=== PATIENT | female | born 1955 | race Caucasian/White ===

== ENCOUNTER 2017-01-14 17:26 | Observation (INO) | payer OTHER ==
--- NOTE | 2017-01-14 17:43 | EDPHY ---
H & P Time Seen by Provider: 01/14/17 17:28 HPI/ROS: CHIEF COMPLAINT: Chest pain HISTORY OF PRESENT ILLNESS: This patient is an anticoagulated 61 y/o female s/p STEMI with two stent placements 12/02/16 presenting with chest pain onset five days ago. Her symptoms over the last week are different from and not nearly so severe as her initial STEMI presentation. She has a sensation of feeling the stents which she describes as a left-sided pinching sensation in her left chest. This is constant. Her discomfort resolves after she sleeps, and gets progressively worse throughout each day. Activity makes it worse, and she feels improved when she lies down and tries to relax. Today, she felt a head marlow while sitting at her computer and felt very close to passing out. This has since resolved. She denies headache, fever, shortness of breath, nausea, or other associated symptoms. STEMI complicated by coronary artery perforation and hemorrhage with subsequent five-day ICU admission. She returned to work yesterday after a six week recovery including cardiac rehabilitation. REVIEW OF SYSTEMS: A 10 point review of systems was performed and is negative with the exception of the elements mentioned in the history of present illness. Past Medical/Surgical History: 1. Hypothyroid 2. STEMI s/p stent placement x2 12/02/16 Social History: Lives in [place]. Friends at bedside. Works at [employer]. Smoking Status: Never smoked Physical Exam: General Appearance: Alert, no distress Eyes: Pupils equal and round, no conjunctival pallor or injection ENT, Mouth: Mucous membranes moist Neck: Normal inspection Respiratory: Lungs are clear to auscultation Cardiovascular: Regular rate and rhythm Gastrointestinal: Abdomen is soft and non- tender Neurological: A&O, nonfocal, normal gait Skin: Warm and dry, no rash Extremities: Nontender, no pedal edema Psychiatric: Mood and affect normal Constitutional: Initial Vital Signs Temperature (C) 37.2 C 01/14/17 17:29 Heart Rate 81 01/14/17 17:29 Respiratory Rate 16 01/14/17 17:29 Blood Pressure 143/65 H 01/14/17 17:29 O2 Sat (%) 99 01/14/17 17:29 O2 Delivery Mode Room Air Allergies/Adverse Reactions: No Known Allergies Allergy (Unverified 01/14/17 17:35) Home Medications: Medication Instructions Recorded Aspirin EC [Aspirin EC 81 mg (*)] 81 mg PO DAILY 01/14/17 Atorvastatin Calcium 80 mg PO DAILY 01/14/17 Levothyroxine [Synthroid 50 mcg 50 mcg PO DAILY06 01/14/17 (*)] Lisinopril [Lisinopril] 2.5 mg PO DAILY 01/14/17 Metoprolol Succinate Xr [Toprol Xl 12.5 mg PO DAILY 01/14/17 25 mg (*)] Tears/Dextran 70/Hypromellose 1 drop EACHEYE PRN PRN 01/14/17 [Natural Balance Tears (*)] Ticagrelor [Brilinta] 90 mg PO BID 01/14/17 Medical Decision Making - Diagnostics EKG Interpretation: EKG interpreted by me reveals normal sinus rhythm, rate 76, no ST/T changes. Interpretation: normal EKG. Imaging Results: Imaging Impressions Chest X-Ray 01/14/17 18:04 Impression: No evidence of acute cardiopulmonary abnormality. Imaging: I viewed and interpreted images myself ED Course/Re-evaluation: 61 y/o female s/p STEMI and stent placement 12/02/16 presents with chest pain. Her presentation with prior STEMI was like "an elephant on her chest" whereas today it is characterized by a sharp, left-sided pinching sensation. Exam unremarkable. EKG shows sinus rhythm and no evidence of ischemia or dysrhythmia. Doubt acute coronary syndrome/stent blockage. Plan for chest x- ray, EKG, labs including CBC, BMP, troponin, D-dimer. D-dimer and troponin negative. Chest x-ray negative for acute processes. No evidence pneumonia, pneumothorax. I query whether she has a pericardial effusion given her pleuritic chest pain. There is no emergent indication for echocardiogram this evening, but will planned for echocardiogram the morning. D -dimer is negative and I do not suspect pulmonary embolism in this patient. She is currently anticoagulated and has no risk factors for pulmonary embolism. I feel that I can safely exclude this diagnosis. 18:[address] Webster, hospitalist. She accepts admission to PCU for chest pain. 19:[address] Patterson, levi maker. He will consult the patient in the morning. Differential Diagnosis: Differential diagnosis includes though it is not limited to pneumonia, pneumothorax, pulmonary embolism, aortic dissection, pericarditis, acute coronary syndrome. - Data Points Laboratory Results: Laboratory Results 01/14/17 18:00 01/14/17 18:00 01/14/17 01/14/17 01/14/17 18:00 18:00 18:00 WBC 7.04 10^3/uL 10^3/uL (3.80-9.50) RBC 4.06 10^6/uL L 10^6/uL (4.18-5.33) Hgb 12.4 g/dL L g/dL (12.6-16.3) Hct 37.5 % L % (38.0-47.0) MCV 92.4 fL fL (81.5-99.8) MCH 30.5 pg pg (27.9-34.1) MCHC 33.1 g/dL g/dL (32.4-36.7) RDW 12.8 % % (11.5-15.2) Plt Count 333 10^3/uL 10^3/uL (150-400) MPV 8.9 fL fL (8.7-11.7) Neut % (Auto) 54.5 % % (39.3-74.2) Lymph % (Auto) 30.0 % % (15.0-45.0) [place] % (Auto) 10.1 % % (4.5-13.0) Eos % (Auto) 3.6 % % (0.6-7.6) Baso % (Auto) 1.7 % % (0.3-1.7) Nucleat RBC Rel Count 0.0 % % (0.0-0.2) Absolute Neuts (auto) 3.84 10^3/uL 10^3/uL (1.70-6.50) Absolute Lymphs (auto) 2.11 10^3/uL 10^3/uL (1.00-3.00) Absolute Monos (auto) 0.71 10^3/uL 10^3/uL (0.30-0.80) Absolute Eos (auto) 0.25 10^3/uL 10^3/uL (0.03-0.40) Absolute Basos (auto) 0.12 10^3/uL H 10^3/uL (0.02-0.10) Absolute Nucleated RBC 0.00 10^3/uL 10^3/uL (0-0.01) Immature Gran % 0.1 % % (0.0-1.1) Immature Gran # 0.01 10^3/uL 10^3/uL (0.00-0.10) D-Dimer 0.38 ug/mLFEU ug/mLFEU (0.00-0.50) Sodium 139 mEq/L mEq/L (134-144) Potassium 3.5 mEq/L mEq/L (3.5-5.2) Chloride 105 mEq/L mEq/L (97-110) Carbon Dioxide 24 mEq/l mEq/l (22-31) Anion Gap 10 mEq/L mEq/L (8-16) BUN 12 mg/dL mg/dL (7-23) Creatinine 0.8 mg/dL mg/dL (0.6-1.0) Estimated GFR > 60 Glucose 99 mg/dL mg/dL (70-100) Calcium 9.3 mg/dL mg/dL (8.5-10.4) Troponin I < 0.012 ng/mL ng/mL (0.000-0.034) NT-Pro-B Natriuret Pep 774 pg/mL H pg/mL (0-125) Departure - Departure Disposition: [facility] Inpatient Acute Clinical Impression: Chest pain Qualifiers: Chest pain type: other chest pain Qualified Code(s): R07.89 - Other chest pain Condition: Fair Report Scribed for: Gwendolyn Lau Report Scribed by: Arlene Vega Date of Report: 01/14/17 Time of Report: 17:41 Physician Review and Approval Statement: 01/14/17 17:41 Portions of this note were transcribed by a medical staff physician. I personally performed a history, physical exam, medical decision making, and confirmed accuracy of information the transcribed note.
--- NOTE | 2017-01-14 17:45 | CPEKG ---
Heart Rate: 76 RR Interval: 789 P-R Interval: 152 QRSD Interval: 72 QT Interval: 396 QTC Interval: 446 P Montgomery: 55 QRS Montgomery: 20 T Wave Montgomery: 47 EKG Severity - NORMAL ECG - EKG Impression: SINUS RHYTHM Electronically Signed By: Gwendolyn Lau 14-Jan-2017 20:09:43
[2017-01-14 18:09] LABS: PLATELET COUNT 333 10^3/uL (150-400)
[2017-01-14] MEDS ORDERED: ACETAMINOPHEN 325 MG TAB PO PRN (19:11)
[2017-01-14] MEDS ORDERED: ONDANSETRON DISINTEGRATING 4 MG TAB PO PRN (19:11)
[2017-01-14] MEDS ORDERED: ONDANSETRON 4 MG/2 ML VIAL IVP PRN (19:11)
[2017-01-14] MEDS ORDERED: TEARS/DEXTRAN 70/HYPROMELLOSE 15 ML OPHT.BTL EACHEYE PRN (20:43)
[2017-01-14] MEDS: ASPIRIN EC 81 MG TAB PO SCH (21:28)
[2017-01-14] MEDS: TICAGRELOR 90 MG TAB PO SCH (21:28)
--- NOTE | 2017-01-14 21:46 | GHP ---
[f rep st] HISTORY AND PHYSICAL DATE OF ADMISSION: 01/14/2017 CHIEF COMPLAINT: Chest pain. HISTORY OF PRESENT ILLNESS: A 61-year-old female with history of recent STEMI December 02, 2016, presenting with chest pain that began 5 days ago. The patient initially presented to [facility] and had 2 LAD stents placed. Was complicated by a coronary artery perforation hemorrhage with a subsequent 5 day ICU admission. She returned to work yesterday after 6 week recovery including cardiac rehab. Since discharge, she reports shortness of breath with activity like stairs. She comes in today with a left upper chest and neck pinching sensation. It is minimal in the morning and increases throughout the day up to a 10/10 at night. It has been constant, but has progressed over the past 5 days, thus she came into the ER. No associated radiation to the arm or jaw. No diaphoresis or nausea. Reports PND. Has had swollen feet, but she says this is chronic. Denies any recent trauma to the chest. Has been compliant with all of her medications. Reports sensation of presyncope today at work. Was sitting at desk and "saw stars", but did not have LOC. Was having left-neck pain, but no CP, SOB, N/V, diaphoresis with this episode. REVIEW OF SYSTEMS: I completed a 10-point review of systems, negative except as noted in HPI. PAST MEDICAL HISTORY: 1. STEMI status post 2 stents to LAD 12/02/2016. 2. Hypothyroidism. 3. Footdrop. 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 SOCIAL: Lives in [place]. 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 No cigarettes or drugs. FAMILY HISTORY: Dad [place]. A sister with [place]. Mother, paternal uncles with [place]. Grandfather with [place]. HOME MEDICATIONS: See medication reconciliation. ALLERGIES: Codeine, mild. PHYSICAL EXAM: VITAL SIGNS: Blood pressure is 142/75, temperature 37.2, heart rate 70s, respirations 16, 97% on room air. GENERAL: Well-appearing female, sitting up in bed, no acute distress. HEENT: PERRLA. EOMI. Oropharynx clear. CV: Regular rate and rhythm. No murmurs, gallops, rubs. No JVD. Trace pedal edema. LUNGS: Clear to auscultation. No crackles. ABDOMEN: Soft , nontender, nondistended. Positive bowel sounds. : No suprapubic tenderness. MUSCULOSKELETAL: Reproducible pain on left neck. Significant pain with palpation over left upper chest as well. Contracture of right foot with bruising over great toe. NEURO: 2 through 12 intact. PSYCH: Alert and oriented x3. Very pleasant. LABS: WBC 7, hemoglobin 12, hematocrit 37, platelets 333. D-dimer is 0.38. Sodium 139, potassium 3.5, chloride 105, carbon dioxide 24, BUN 12, creatinine 0.8, glucose 99. Troponin less than 0.012. BNP is 774. Chest x-ray personally reviewed by me. No evidence of effusion or edema. EKG personally reviewed by me. Normal sinus rhythm. Minimal ST depression in V2, V3. No old to compare. ASSESSMENT AND PLAN: 1. Neck/chest pain: Differential includes: musculoskeletal, in-stent thrombosis, acute coronary syndrome, PE. Initial troponin and EKG negative for ischemia. Her pain is reproducible on exam. Given recent stenting, we will monitor overnight PCU on telemetry. Repeat troponin, EKG. Dr. Lau did speak with Dr. Concepcion of Cardiology to weigh in in the morning. P.r.n. morphine, sublingual nitroglycerin. Obtain records from [facility]. 2. Coronary artery disease: 2 recent stents. Continue statin, beta sonia, Brilinta and aspirin. Again, Cardiology to evaluate. 3. Anxiety: This was exacerbated by trauma associated with recent stenting. Per daughter, the patient was not fully sedated and pulled the stent out. We will provide p.r.n. Ativan. 4. Hypothyroidism. Continue home medications. 5. Shortness of breath: BNP is mildly elevated and she reports PND. Check an echocardiogram in morning. Not hypoxic here. DIET: Cardiac n.p.o. after midnight in case of intervention. DISPOSITION: Patient warrants observation admission given acute chest pain warranting serial enzymes, telemetry and cardiac evaluation. /[id number]/MODL MTDD
--- NOTE | 2017-01-14 21:46 | GHP ---
[f rep st] HISTORY AND PHYSICAL DATE OF ADMISSION: 01/14/2017 CHIEF COMPLAINT: Chest pain. HISTORY OF PRESENT ILLNESS: A 61-year-old female with history of recent STEMI December 02, 2016, presenting with chest pain that began 5 days ago. The patient initially presented to [facility] and had 2 LAD stents placed. Was complicated by a coronary artery perforation hemorrhage with a subsequent 5 day ICU admission. She returned to work yesterday after 6 week recovery including cardiac rehab. Since discharge, she reports shortness of breath with activity like stairs. She comes in today with a left upper chest and neck pinching sensation. It is minimal in the morning and increases throughout the day up to a 10/10 at night. It has been constant, but has progressed over the past 5 days, thus she came into the ER. No associated radiation to the arm or jaw. No diaphoresis or nausea. Reports PND. Has had swollen feet, but she says this is chronic. Denies any recent trauma to the chest. Has been compliant with all of her medications. Reports sensation of presyncope today at work. Was sitting at desk and "saw stars", but did not have LOC. Was having left-neck pain, but no CP, SOB, N/V, diaphoresis with this episode. REVIEW OF SYSTEMS: I completed a 10-point review of systems, negative except as noted in HPI. PAST MEDICAL HISTORY: 1. STEMI status post 2 stents to LAD 12/02/2016. 2. Hypothyroidism. 3. Footdrop. 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 SOCIAL: Lives in [place]. 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 No cigarettes or drugs. FAMILY HISTORY: Dad [place]. A sister with [place]. Mother, paternal uncles with [place]. Grandfather with [place]. HOME MEDICATIONS: See medication reconciliation. ALLERGIES: Codeine, mild. PHYSICAL EXAM: VITAL SIGNS: Blood pressure is 142/75, temperature 37.2, heart rate 70s, respirations 16, 97% on room air. GENERAL: Well-appearing female, sitting up in bed, no acute distress. HEENT: PERRLA. EOMI. Oropharynx clear. CV: Regular rate and rhythm. No murmurs, gallops, rubs. No JVD. Trace pedal edema. LUNGS: Clear to auscultation. No crackles. ABDOMEN: Soft , nontender, nondistended. Positive bowel sounds. : No suprapubic tenderness. MUSCULOSKELETAL: Reproducible pain on left neck. Significant pain with palpation over left upper chest as well. Contracture of right foot with bruising over great toe. NEURO: 2 through 12 intact. PSYCH: Alert and oriented x3. Very pleasant. LABS: WBC 7, hemoglobin 12, hematocrit 37, platelets 333. D-dimer is 0.38. Sodium 139, potassium 3.5, chloride 105, carbon dioxide 24, BUN 12, creatinine 0.8, glucose 99. Troponin less than 0.012. BNP is 774. Chest x-ray personally reviewed by me. No evidence of effusion or edema. EKG personally reviewed by me. Normal sinus rhythm. Minimal ST depression in V2, V3. No old to compare. ASSESSMENT AND PLAN: 1. Neck/chest pain: Differential includes: musculoskeletal, in-stent thrombosis, acute coronary syndrome, PE. Initial troponin and EKG negative for ischemia. Her pain is reproducible on exam. Given recent stenting, we will monitor overnight PCU on telemetry. Repeat troponin, EKG. Dr. Lau did speak with Dr. Concepcion of Cardiology to weigh in in the morning. P.r.n. morphine, sublingual nitroglycerin. Obtain records from [facility]. 2. Coronary artery disease: 2 recent stents. Continue statin, beta sonia, Brilinta and aspirin. Again, Cardiology to evaluate. 3. Anxiety: This was exacerbated by trauma associated with recent stenting. Per daughter, the patient was not fully sedated and pulled the stent out. We will provide p.r.n. Ativan. 4. Hypothyroidism. Continue home medications. 5. Shortness of breath: BNP is mildly elevated and she reports PND. Check an echocardiogram in morning. Not hypoxic here. DIET: Cardiac n.p.o. after midnight in case of intervention. DISPOSITION: Patient warrants observation admission given acute chest pain warranting serial enzymes, telemetry and cardiac evaluation. /[id number]/MODL MTDD
--- NOTE | 2017-01-14 21:46 | GHP ---
[f rep st] HISTORY AND PHYSICAL DATE OF ADMISSION: 01/14/2017 CHIEF COMPLAINT: Chest pain. HISTORY OF PRESENT ILLNESS: A 61-year-old female with history of recent STEMI December 02, 2016, presenting with chest pain that began 5 days ago. The patient initially presented to [facility] and had 2 LAD stents placed. Was complicated by a coronary artery perforation hemorrhage with a subsequent 5 day ICU admission. She returned to work yesterday after 6 week recovery including cardiac rehab. Since discharge, she reports shortness of breath with activity like stairs. She comes in today with a left upper chest and neck pinching sensation. It is minimal in the morning and increases throughout the day up to a 10/10 at night. It has been constant, but has progressed over the past 5 days, thus she came into the ER. No associated radiation to the arm or jaw. No diaphoresis or nausea. Reports PND. Has had swollen feet, but she says this is chronic. Denies any recent trauma to the chest. Has been compliant with all of her medications. Reports sensation of presyncope today at work. Was sitting at desk and "saw stars", but did not have LOC. Was having left-neck pain, but no CP, SOB, N/V, diaphoresis with this episode. REVIEW OF SYSTEMS: I completed a 10-point review of systems, negative except as noted in HPI. PAST MEDICAL HISTORY: 1. STEMI status post 2 stents to LAD 12/02/2016. 2. Hypothyroidism. 3. Footdrop. 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 SOCIAL: Lives in [place]. 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 No cigarettes or drugs. FAMILY HISTORY: Dad [place]. A sister with [place]. Mother, paternal uncles with [place]. Grandfather with [place]. HOME MEDICATIONS: See medication reconciliation. ALLERGIES: Codeine, mild. PHYSICAL EXAM: VITAL SIGNS: Blood pressure is 142/75, temperature 37.2, heart rate 70s, respirations 16, 97% on room air. GENERAL: Well-appearing female, sitting up in bed, no acute distress. HEENT: PERRLA. EOMI. Oropharynx clear. CV: Regular rate and rhythm. No murmurs, gallops, rubs. No JVD. Trace pedal edema. LUNGS: Clear to auscultation. No crackles. ABDOMEN: Soft , nontender, nondistended. Positive bowel sounds. : No suprapubic tenderness. MUSCULOSKELETAL: Reproducible pain on left neck. Significant pain with palpation over left upper chest as well. Contracture of right foot with bruising over great toe. NEURO: 2 through 12 intact. PSYCH: Alert and oriented x3. Very pleasant. LABS: WBC 7, hemoglobin 12, hematocrit 37, platelets 333. D-dimer is 0.38. Sodium 139, potassium 3.5, chloride 105, carbon dioxide 24, BUN 12, creatinine 0.8, glucose 99. Troponin less than 0.012. BNP is 774. Chest x-ray personally reviewed by me. No evidence of effusion or edema. EKG personally reviewed by me. Normal sinus rhythm. Minimal ST depression in V2, V3. No old to compare. ASSESSMENT AND PLAN: 1. Neck/chest pain: Differential includes: musculoskeletal, in-stent thrombosis, acute coronary syndrome, PE. Initial troponin and EKG negative for ischemia. Her pain is reproducible on exam. Given recent stenting, we will monitor overnight PCU on telemetry. Repeat troponin, EKG. Dr. Lau did speak with Dr. Concepcion of Cardiology to weigh in in the morning. P.r.n. morphine, sublingual nitroglycerin. Obtain records from [facility]. 2. Coronary artery disease: 2 recent stents. Continue statin, beta sonia, Brilinta and aspirin. Again, Cardiology to evaluate. 3. Anxiety: This was exacerbated by trauma associated with recent stenting. Per daughter, the patient was not fully sedated and pulled the stent out. We will provide p.r.n. Ativan. 4. Hypothyroidism. Continue home medications. 5. Shortness of breath: BNP is mildly elevated and she reports PND. Check an echocardiogram in morning. Not hypoxic here. DIET: Cardiac n.p.o. after midnight in case of intervention. DISPOSITION: Patient warrants observation admission given acute chest pain warranting serial enzymes, telemetry and cardiac evaluation. /[id number]/MODL MTDD
[2017-01-14] MEDS: NITROGLYCERIN 0.4 MG BTL SL PRN ×2 (22:12→22:44)
[2017-01-14] MEDS: LORazepam 0.5 MG TAB PO PRN (22:17)
[2017-01-14] MEDS ORDERED: MAG HYDROX/AL HYDROX/SIMETH 30 ML UDCUP PO PRN (23:00)
[2017-01-15] MEDS ORDERED: MAG HYDROX/AL HYDROX/SIMETH 30 ML UDCUP ONE (00:01)
[2017-01-15] MEDS ORDERED: LEVOTHYROXINE 50 MCG TAB PO SCH (06:00)
[2017-01-15] MEDS ORDERED: METOPROLOL SUCCINATE XR 25 MG TAB PO SCH (09:00)
[2017-01-15] MEDS ORDERED: ATORVASTATIN CALCIUM 40 MG TAB PO SCH (09:00)
[2017-01-15] MEDS ORDERED: LISINOPRIL 2.5 MG TAB PO SCH (09:00)
[2017-01-15] MEDS: ASPIRIN EC 81 MG TAB PO SCH (09:32)
[2017-01-15] MEDS: TICAGRELOR 90 MG TAB PO SCH (09:32)
--- NOTE | 2017-01-15 09:35 | ASMTCMCOM ---
CM Note CM Note Notes: 01/15/2017 Case Management Note Met w/pt. No case management d/c needs identified at this time. Case Management d/c poc: Home independent with friend and family support when medically stable. Date Signed: 01/15/2017 09:34 AM Electronically Signed By:Kimberly Pepper RN
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
[2017-01-15] MEDS ORDERED: traMADol 50 MG TAB PO PRN (11:11)
[2017-01-15] MEDS ORDERED: LIDOCAINE 5% 1 EA PATCH TD SCH (11:15)
--- NOTE | 2017-01-15 11:22 | ECHO ---
[email or web address] [address] [address] Main: [phone] Fax: Transthoracic Echocardiogram Name: DEXTER GALICIA MR#: [id number] Study Date: 01/15/2017 Study Time: 08:20 AM Date of : 1955 Age: 61 year(s) Height: 162.6 cm (64 in.) Weight: 58.97 kg (130 lb.) BSA: 1.63 m2 Gender: Female Examination: Echo Indication: Recent stents, Shortness of breath Image Quality: Contrast: Requested by: Jeny Webster BP: 103 mmHg/55 mmHg Heart Rate: Rhythm: Indication: Recent stents, Shortness of breath Procedure Staff Cattle Sprayer: Brigid Santos Reading Physician: Dagoberto Muñiz Requesting Provider: Conclusions: Technically difficult study with poor acoustic windows. The patient was in sinus rhythm at the time of the study. Normal left ventricular systolic function with an ejection fraction of 60 65%. There appears to be inferoseptal severe hypokinesis to akinesis. Detailed wall motion analysis is difficult due to the acoustic windows. Normal right-sided Chamber dimensions. Mild left atrial enlargement. Trivial aortic regurgitation. Mild mitral and trace tricuspid regurgitation. No pericardial effusion. Measurements: Chambers Valvular Assessment AV/MV Valvular Assessment TV/PV Normal Normal Normal Name Value Range Name Value Range Name Value Range Ao Ann Marie (MM): 2.6 cm (2.2 cm-3.7 AV meanP mmHg ( - ) cm) MV E Vmax: 0.58 m/s ( - ) IVSd (2D): 0.6 cm (0.6 cm-1.1 MV A Vmax: 0.63 m/s ( - ) cm) MV E/A: 0.92 ( - ) LVDd (2D): 5.0 cm (3.9 cm-5.3 cm) LVPWd (2D): 0.7 cm ( - ) LVEF (MOD4): 64 % (>=55 %) EF Range: 60-65 % Continued Measurements: Chambers Valvular Assessment AV/MV Name Value Name Value LADs: 3.1 cm MV E/E' Septal: 8.00 LADs Lon.6 cm MV E/E' Lateral: 5.70 LA Area: 17.4 cm2 Patient: DEXTER GALICIA Study Date: 01/15/2017 Page 1 of 2 08:20 AM Findings: Left Ventricle: Normal size left ventricle. No LV hypertrophy. The ejection fraction is estimated to be 60-65 %. LV mid inferoseptal wall is akinetic.. Right Ventricle: Normal size right ventricle. Normal RV function. Left Atrium: The left atrium is mildly dilated. Right Atrium: The right atrium is normal in size. Mitral Valve: The mitral valve is normal in appearance and function. Mild mitral valve regurgitation is present. Aortic Valve: The aortic valve is normal in appearance and function. Trivial aortic valve regurgitation. Tricuspid Valve: The tricuspid valve is normal in appearance and function. Trivial tricuspid valve regurgitation. Pulmonic Valve: The pulmonic valve is normal in appearance and function. Aorta: The aorta is normal. Pericardium: No pericardial effusion. (No Signature Object) Patient: DEXTER GALICIA Study Date: 01/15/2017 Page 2 of 2 08:20 AM [id number]
--- NOTE | 2017-01-15 11:22 | ECHO ---
[email or web address] [address] [address] Main: [phone] Fax: Transthoracic Echocardiogram Name: DEXTER GALICIA MR#: [id number] Study Date: 01/15/2017 Study Time: 08:20 AM Date of : 1955 Age: 61 year(s) Height: 162.6 cm (64 in.) Weight: 58.97 kg (130 lb.) BSA: 1.63 m2 Gender: Female Examination: Echo Indication: Recent stents, Shortness of breath Image Quality: Contrast: Requested by: Jeny Webster BP: 103 mmHg/55 mmHg Heart Rate: Rhythm: Indication: Recent stents, Shortness of breath Procedure Staff [place]ater: Brigid Santos Reading Physician: Dagoberto Muñiz Requesting Provider: Conclusions: Technically difficult study with poor acoustic windows. The patient was in sinus rhythm at the time of the study. Normal left ventricular systolic function with an ejection fraction of 60 65%. There appears to be inferoseptal severe hypokinesis to akinesis. Detailed wall motion analysis is difficult due to the acoustic windows. Normal right-sided Chamber dimensions. Mild left atrial enlargement. Trivial aortic regurgitation. Mild mitral and trace tricuspid regurgitation. No pericardial effusion. Measurements: Chambers Valvular Assessment AV/MV Valvular Assessment TV/PV Normal Normal Normal Name Value Range Name Value Range Name Value Range Ao Ann Marie (MM): 2.6 cm (2.2 cm-3.7 AV meanP mmHg ( - ) cm) MV E Vmax: 0.58 m/s ( - ) IVSd (2D): 0.6 cm (0.6 cm-1.1 MV A Vmax: 0.63 m/s ( - ) cm) MV E/A: 0.92 ( - ) LVDd (2D): 5.0 cm (3.9 cm-5.3 cm) LVPWd (2D): 0.7 cm ( - ) LVEF (MOD4): 64 % (>=55 %) EF Range: 60-65 % Continued Measurements: Chambers Valvular Assessment AV/MV Name Value Name Value LADs: 3.1 cm MV E/E' Septal: 8.00 LADs Lon.6 cm MV E/E' Lateral: 5.70 LA Area: 17.4 cm2 Patient: DEXTER GALICIA Study Date: 01/15/2017 Page 1 of 2 08:20 AM Findings: Left Ventricle: Normal size left ventricle. No LV hypertrophy. The ejection fraction is estimated to be 60-65 %. LV mid inferoseptal wall is akinetic.. Right Ventricle: Normal size right ventricle. Normal RV function. Left Atrium: The left atrium is mildly dilated. Right Atrium: The right atrium is normal in size. Mitral Valve: The mitral valve is normal in appearance and function. Mild mitral valve regurgitation is present. Aortic Valve: The aortic valve is normal in appearance and function. Trivial aortic valve regurgitation. Tricuspid Valve: The tricuspid valve is normal in appearance and function. Trivial tricuspid valve regurgitation. Pulmonic Valve: The pulmonic valve is normal in appearance and function. Aorta: The aorta is normal. Pericardium: No pericardial effusion. (No Signature Object) Patient: DEXTER GALICIA Study Date: 01/15/2017 Page 2 of 2 08:20 AM [id number]
--- NOTE | 2017-01-15 11:22 | ECHO ---
[email or web address] [address] [address] Main: [phone] Fax: Transthoracic Echocardiogram Name: DEXTER GALICIA MR#: [id number] Study Date: 01/15/2017 Study Time: 08:20 AM Date of : 1955 Age: 61 year(s) Height: 162.6 cm (64 in.) Weight: 58.97 kg (130 lb.) BSA: 1.63 m2 Gender: Female Examination: Echo Indication: Recent stents, Shortness of breath Image Quality: Contrast: Requested by: Jeny Webster BP: 103 mmHg/55 mmHg Heart Rate: Rhythm: Indication: Recent stents, Shortness of breath Procedure Staff Mobile Paramedical Examiner: Brigid Santos Reading Physician: Dagoberto Muñiz Requesting Provider: Conclusions: Technically difficult study with poor acoustic windows. The patient was in sinus rhythm at the time of the study. Normal left ventricular systolic function with an ejection fraction of 60 65%. There appears to be inferoseptal severe hypokinesis to akinesis. Detailed wall motion analysis is difficult due to the acoustic windows. Normal right-sided Chamber dimensions. Mild left atrial enlargement. Trivial aortic regurgitation. Mild mitral and trace tricuspid regurgitation. No pericardial effusion. Measurements: Chambers Valvular Assessment AV/MV Valvular Assessment TV/PV Normal Normal Normal Name Value Range Name Value Range Name Value Range Ao Ann Marie (MM): 2.6 cm (2.2 cm-3.7 AV meanP mmHg ( - ) cm) MV E Vmax: 0.58 m/s ( - ) IVSd (2D): 0.6 cm (0.6 cm-1.1 MV A Vmax: 0.63 m/s ( - ) cm) MV E/A: 0.92 ( - ) LVDd (2D): 5.0 cm (3.9 cm-5.3 cm) LVPWd (2D): 0.7 cm ( - ) LVEF (MOD4): 64 % (>=55 %) EF Range: 60-65 % Continued Measurements: Chambers Valvular Assessment AV/MV Name Value Name Value LADs: 3.1 cm MV E/E' Septal: 8.00 LADs Lon.6 cm MV E/E' Lateral: 5.70 LA Area: 17.4 cm2 Patient: DEXTER GALICIA Study Date: 01/15/2017 Page 1 of 2 08:20 AM Findings: Left Ventricle: Normal size left ventricle. No LV hypertrophy. The ejection fraction is estimated to be 60-65 %. LV mid inferoseptal wall is akinetic.. Right Ventricle: Normal size right ventricle. Normal RV function. Left Atrium: The left atrium is mildly dilated. Right Atrium: The right atrium is normal in size. Mitral Valve: The mitral valve is normal in appearance and function. Mild mitral valve regurgitation is present. Aortic Valve: The aortic valve is normal in appearance and function. Trivial aortic valve regurgitation. Tricuspid Valve: The tricuspid valve is normal in appearance and function. Trivial tricuspid valve regurgitation. Pulmonic Valve: The pulmonic valve is normal in appearance and function. Aorta: The aorta is normal. Pericardium: No pericardial effusion. (No Signature Object) Patient: DEXTER GALICIA Study Date: 01/15/2017 Page 2 of 2 08:20 AM [id number]
[2017-01-15] MEDS: LORazepam 0.5 MG TAB PO PRN ×2 (11:24→19:02)
[2017-01-15] MEDS ORDERED: METOPROLOL TARTRATE 5 MG/5 ML INJ IVP ONE (13:04)
[2017-01-15] MEDS ORDERED: IOPAMIDOL (ISOVUE 370) 100 ML BTL IV ONE (15:53)
[2017-01-15 16:57] VITALS: BP 99/47; PULSE 71; RESP 14; TEMP 98.5; O2SAT 96
--- NOTE | 2017-01-15 18:53 | PDDCSUM ---
Discharge Summary Discharge Summary: DISCHARGE DIAGNOSES: -inflammatory chest wall pain -rule out for myocardial infarction -coronary artery disease with recent placement of stents done at the [facility]; she none continues aspirin, Brilinta, and statin therapy CONSULTANTS: Dr. Misael Cormier PROCEDURES: CT angiogram of the coronary arteries showing patent stents and no other stenotic lesions in her [place] coronaries HOSPITAL COURSE SUMMARY: This patient had been admitted to the [facility] just recently with acute coronary syndrome and underwent stenting which was complicated by a coronary perforation. She spent 5 days in the ICU but ultimately did well and had good outcomes were stents. She has had no heart failure through all this and no arrhythmia. At this time she now comes into the hospital here with 4 days of a constant aching pain in her upper left anterior chest area aggravated by movements of the shoulder and trunk. There is no cough or shortness of breath, palpitations, leg swelling, orthopnea. In the ER she rule out for myocardial infarction. Night has do trying no abnormalities with her stents or platinum coronaries. She is felt to have chest wall pain of probable inflammatory nature. There was nothing on the CT scan that would explain the cause of her pain otherwise. She is felt stable for discharge to home and she can use Aspercreme and Tylenol and heating pad which has been helping her here in the hospital quite nicely. PENDING TEST RESULTS: None MEDICATION CHANGES: None FOLLOW-UP PLAN: Dr. Payton Oliveros in 2-4 weeks Greater than 35 minutes bedside and care coordination time today
--- NOTE | 2017-01-15 18:53 | PDDCSUM ---
Discharge Summary Discharge Summary: DISCHARGE DIAGNOSES: -inflammatory chest wall pain -rule out for myocardial infarction -coronary artery disease with recent placement of stents done at the [facility]; she none continues aspirin, Brilinta, and statin therapy CONSULTANTS: Dr. Misael Cormier PROCEDURES: CT angiogram of the coronary arteries showing patent stents and no other stenotic lesions in her [place] coronaries HOSPITAL COURSE SUMMARY: This patient had been admitted to the [facility] just recently with acute coronary syndrome and underwent stenting which was complicated by a coronary perforation. She spent 5 days in the ICU but ultimately did well and had good outcomes were stents. She has had no heart failure through all this and no arrhythmia. At this time she now comes into the hospital here with 4 days of a constant aching pain in her upper left anterior chest area aggravated by movements of the shoulder and trunk. There is no cough or shortness of breath, palpitations, leg swelling, orthopnea. In the ER she rule out for myocardial infarction. Night has do trying no abnormalities with her stents or [facility] coronaries. She is felt to have chest wall pain of probable inflammatory nature. There was nothing on the CT scan that would explain the cause of her pain otherwise. She is felt stable for discharge to home and she can use Aspercreme and Tylenol and heating pad which has been helping her here in the hospital quite nicely. PENDING TEST RESULTS: None MEDICATION CHANGES: None FOLLOW-UP PLAN: Dr. Payton Oliveros in 2-4 weeks Greater than 35 minutes bedside and care coordination time today
--- NOTE | 2017-01-15 18:53 | PDDCSUM ---
Discharge Summary Discharge Summary: DISCHARGE DIAGNOSES: -inflammatory chest wall pain -rule out for myocardial infarction -coronary artery disease with recent placement of stents done at the [facility]; she none continues aspirin, Brilinta, and statin therapy CONSULTANTS: Dr. Misael Cormier PROCEDURES: CT angiogram of the coronary arteries showing patent stents and no other stenotic lesions in her [place] coronaries HOSPITAL COURSE SUMMARY: This patient had been admitted to the [facility] just recently with acute coronary syndrome and underwent stenting which was complicated by a coronary perforation. She spent 5 days in the ICU but ultimately did well and had good outcomes were stents. She has had no heart failure through all this and no arrhythmia. At this time she now comes into the hospital here with 4 days of a constant aching pain in her upper left anterior chest area aggravated by movements of the shoulder and trunk. There is no cough or shortness of breath, palpitations, leg swelling, orthopnea. In the ER she rule out for myocardial infarction. Night has do trying no abnormalities with her stents or [place] coronaries. She is felt to have chest wall pain of probable inflammatory nature. There was nothing on the CT scan that would explain the cause of her pain otherwise. She is felt stable for discharge to home and she can use Aspercreme and Tylenol and heating pad which has been helping her here in the hospital quite nicely. PENDING TEST RESULTS: None MEDICATION CHANGES: None FOLLOW-UP PLAN: Dr. Payton Oliveros in 2-4 weeks Greater than 35 minutes bedside and care coordination time today
[2017-01-15] MEDS ORDERED: PATCH REMOVAL 1 EA PATCH TD SCH (21:00)
== END 2017-01-15 19:05 | disposition home or self-care (01) ==
LOC: EEVIPCON 17:26 → F2W 21:01
PROVIDERS: ADMIT Internal Medicine; ATTEND Internal Medicine
DX: R07.89 Other chest pain (principal); I25.10 Atherosclerotic heart disease of native coronary artery without angina pectoris; Z95.5 Presence of coronary angioplasty implant and graft; E03.9 Hypothyroidism, unspecified; G62.9 Polyneuropathy, unspecified; Z82.49 Family history of ischemic heart disease and other diseases of the circulatory system
CPT/HCPCS: 71020; 75574; 93005; 93306; 99285; G0378; Q9967

== ENCOUNTER → 2017-05-05 | Outpatient (CLI) | payer OTHER | LOC: FIMAGING 11:14 | PROVIDERS: ATTEND Internal Medicine Cardiovascular Disease | DX: M79.601 Pain in right arm (principal) ==

== ENCOUNTER 2017-08-19 16:38 | Observation (INO) | payer OTHER ==
--- NOTE | 2017-08-19 17:10 | EDPHY ---
HPI/HX/ROS/PE/MDM Narrative: CHIEF COMPLAINT: Chest pressure, vomiting HPI: The patient is a 62 y/o female with a history of an LA requiring a cardiac catheterization complaining of several episodes of chest pressure, vomiting, and excessive sweating. The patient has had 3 recent episodes of these symptoms that occur at night; the second occurred 7 days ago and her most recent one occurred 2 days ago. When these episodes happen, the patient becomes pale, sweaty, shaky, and develops chest pressure followed by vomiting. Due to these symptoms, the patient is unable to work the following the day. Today she saw her event crew technician, Dr. Oliveros, who advised that the patient present to the emergency department. The patient is currently not feeling normal as she feels "foggy and out of body" as well as dizzy. She denies falling or loss of consciousness. Denies shortness of breath, abdominal pain, urinary or bowel complaints, numbness, paresthesias. On 07/29/17, Dr. Oliveros took her off of Metoprolol and switched her to Bystolic, as patient became lightheaded and had several near syncopal episodes while on Metoprolol. I reviewed prior medical records including cardiology visit with Dr. Oliveros on 08/01. REVIEW OF SYSTEMS: Aside from elements discussed in the HPI, a comprehensive 10-point review of systems was reviewed and is negative. PMH: Cardiac catheterization, LA, hypothyroid, neuropathy, back surgery SOCIAL HISTORY: Lives in [place], single, employed at [employer] PHYSICAL EXAM: General: Patient is alert, in no acute distress. ENT: Eyes are normal to inspection. ENT inspection normal. Neck: Normal inspection. Full range of motion. Respiratory: No respiratory distress. Breath sounds normal bilaterally. Cardiovascular: Regular rate and rhythm. Strong peripheral pulses. Normal cap refill. Abdomen: The abdomen is nontender to palpation. There are no peritoneal signs. There are normal bowel sounds. Back: Normal to inspection. No tenderness to palpation. Skin: Normal color. No rash. Warm and dry. Extremities: Normal appearance. Full range of motion. Neuro: Oriented x3. Normal motor function. Normal sensory function. ED Course: I spoke with Dr. Oliveros, patient's event crew technician, prior to patient's arrival. Dr. Oliveros would like to have this patient admitted for observation tonight. Patient is comfortable with plan for admission. 1715: EKG was ordered and interpreted by myself. Please see [employer] system for official reading. 1750: Patient's chest x-ray is normal. 0: Consulted with hospitalist service, Dr. Fletcher accepts admission of this patient. 1955: Patient is nauseous, 12.5mg IV Phenergan administered prior to transfer to the floor. - Data Points Imaging Results: Imaging Impressions Chest X-Ray 08/19/17 16:46 Impression: Nothing acute identified. Imaging: I viewed and interpreted images myself Laboratory Results: Laboratory Results 08/19/17 17:20 08/19/17 17:20 08/19/17 08/19/17 08/19/17 17:25 17:20 17:20 WBC RBC Hgb Hct MCV MCH MCHC RDW Plt Count MPV Neut % (Auto) Lymph % (Auto) Gulf % (Auto) Eos % (Auto) Baso % (Auto) Nucleat RBC Rel Count Absolute Neuts (auto) Absolute Lymphs (auto) Absolute Monos (auto) Absolute Eos (auto) Absolute Basos (auto) Absolute Nucleated RBC Immature Gran % Immature Gran # PT 13.0 SEC SEC (12.0-15.0) INR 0.96 (0.83-1.16) APTT 25.5 SEC SEC (23.0-38.0) Sodium 144 mEq/L mEq/L (135-145) Potassium 3.4 mEq/L mEq/L (3.3-5.0) Chloride 108 mEq/L mEq/L (97-110) Carbon Dioxide 26 mEq/l mEq/l (22-31) Anion Gap 10 mEq/L mEq/L (8-16) BUN 9 mg/dL mg/dL (7-23) Creatinine 0.6 mg/dL mg/dL (0.6-1.0) Estimated GFR > 60 Glucose 82 mg/dL mg/dL (70-100) Calcium 9.3 mg/dL mg/dL (8.5-10.4) POC Troponin I 0.00 ng/mL ng/mL (0.00-0.08) 08/19/17 17:20 WBC 6.10 10^3/uL 10^3/uL (3.80-9.50) RBC 4.47 10^6/uL 10^6/uL (4.18-5.33) Hgb 13.4 g/dL g/dL (12.6-16.3) Hct 40.8 % % (38.0-47.0) MCV 91.3 fL fL (81.5-99.8) MCH 30.0 pg pg (27.9-34.1) MCHC 32.8 g/dL g/dL (32.4-36.7) RDW 14.4 % % (11.5-15.2) Plt Count 261 10^3/uL 10^3/uL (150-400) MPV 8.8 fL fL (8.7-11.7) Neut % (Auto) 54.6 % % (39.3-74.2) Lymph % (Auto) 33.3 % % (15.0-45.0) Gulf % (Auto) 9.7 % % (4.5-13.0) Eos % (Auto) 1.0 % % (0.6-7.6) Baso % (Auto) 1.1 % % (0.3-1.7) Nucleat RBC Rel Count 0.0 % % (0.0-0.2) Absolute Neuts (auto) 3.33 10^3/uL 10^3/uL (1.70-6.50) Absolute Lymphs (auto) 2.03 10^3/uL 10^3/uL (1.00-3.00) Absolute Monos (auto) 0.59 10^3/uL 10^3/uL (0.30-0.80) Absolute Eos (auto) 0.06 10^3/uL 10^3/uL (0.03-0.40) Absolute Basos (auto) 0.07 10^3/uL 10^3/uL (0.02-0.10) Absolute Nucleated RBC 0.00 10^3/uL 10^3/uL (0-0.01) Immature Gran % 0.3 % % (0.0-1.1) Immature Gran # 0.02 10^3/uL 10^3/uL (0.00-0.10) PT INR APTT Sodium Potassium Chloride Carbon Dioxide Anion Gap BUN Creatinine Estimated GFR Glucose Calcium POC Troponin I Point of Care Test Results: Chemistry 08/19/17 17:25 POC Troponin I 0.00 ng/mL ng/mL (0.00-0.08) General Time Seen by Provider: 08/19/17 16:45 Initial Vital Signs: Initial Vital Signs Temperature (C) 36.7 C 08/19/17 16:48 Heart Rate 60 08/19/17 16:48 Respiratory Rate 18 08/19/17 16:48 Blood Pressure 143/75 H 08/19/17 16:48 O2 Sat (%) 98 08/19/17 16:48 O2 Delivery Mode Room Air Allergies/Adverse Reactions: No Known Allergies Allergy (Verified 08/19/17 16:47) Home Medications: Medication Instructions Recorded Aspirin EC [Aspirin EC 81 mg (*)] 81 mg PO DAILY 01/14/17 Atorvastatin Calcium 80 mg PO DAILY 01/14/17 Levothyroxine [Synthroid 50 mcg 50 mcg PO DAILY06 01/14/17 (*)] Lisinopril 2.5 mg PO DAILY 01/14/17 Nebivolol HCl [Bystolic] 2.5 mg PO HS 08/19/17 Prasugrel HCl [Effient 10mg (*)] 10 mg PO DAILY 08/19/17 Departure - Departure Disposition: [facility] Inpatient Acute Clinical Impression: Chest pressure, Diaphoresis Chest pain Qualifiers: Chest pain type: other chest pain Qualified Code(s): R07.89 - Other chest pain Condition: Fair Report Scribed for: Ivan Burroughs Report Scribed by: Bonnie Gonzalez Date of Report: 08/19/17 Time of Report: 17:10 Physician Review and Approval Statement: Portions of this note were transcribed by an ED scribe. I personally performed the history, physical exam, and medical decision making; and confirm the accuracy of the information in the transcribed note.
--- NOTE | 2017-08-19 17:16 | CPEKG ---
Heart Rate: 59 RR Interval: 1017 P-R Interval: 156 QRSD Interval: 80 QT Interval: 440 QTC Interval: 436 P [place]: 59 QRS [place]: 33 T Wave [place]: 55 EKG Severity - ABNORMAL ECG - EKG Impression: SINUS RHYTHM EKG Impression: CONSIDER ANTEROSEPTAL INFARCT EKG Impression: COMPARED WITH 01/14/2017, REPOLARIZATION ABNORMALITIES RESOLVED. Q-WAVE IN V 1 EKG Impression: AND V2 NOW PRESENT. Electronically Signed By: Payton Oliveros 21-Aug-2017 08:28:30
[2017-08-19 17:33] LABS: PLATELET COUNT 261 10^3/uL (150-400)
[2017-08-19 17:43] LABS: INR 0.96 (0.83-1.16)
[2017-08-19] MEDS ORDERED: PROMETHAZINE HCL 25 MG/ML INJ ONE (19:56)
[2017-08-19] MEDS ORDERED: PROMETHAZINE HCL 25 MG/ML INJ IVP ONE (19:56)
[2017-08-19] MEDS ORDERED: ONDANSETRON 4 MG/2 ML VIAL IVP PRN (21:14)
[2017-08-19] MEDS ORDERED: PROMETHAZINE HCL 25 MG/ML INJ IVP PRN (21:14)
--- NOTE | 2017-08-19 22:06 | GHP ---
[f rep st] HISTORY AND PHYSICAL DATE OF ADMISSION: 08/19/2017 CHIEF COMPLAINT: Chest pain. HISTORY OF PRESENT ILLNESS: The patient is a 62-year-old female who had an ST-elevation MD in 2016 for which she required a stent to her LAD that was complicated by coronary perforation. Aft er an ICU stay at [facility], she has recovered from this procedure and was doing relatively well until recently. She has now developed recurrence of chest pain that is reminiscent to her previous MD. She has had 3 very dramatic episodes once a week for the last 3 weeks. They only happen at night. She develops a cute onset of sweaty diaphoresis, clammy, and paleness followed by 30 minutes of chest pain and profu se vomiting. These episodes are exhausting and she feels that the effects of the fatigue from the ev ent well into the next day and has missed a couple days of work. She feels wobbly and dizzy, like sh e might pass out. She saw Dr. Oliveros today in the office and she was sent to the emergency room for ad mission and stress testing. Patient also complains of a different pain in her epigastric region and has had a lot of GI upset sin ce her stents were placed. She has changed to a very bland diet. The pain sometimes gets worse afte r eating. She has intermittent diarrhea. PAST MEDICAL HISTORY: 1. Coronary artery disease status post stent to the LAD. Placed during ST-elevation MD. Complicated by coronary perforation, November 2016. 2. Right lower extremity neuropathy and foot drop as a complication of L4-L5 fusion. MEDICATIONS: Please see computer record for full detailed list. ALLERGIES: No known drug allergies. SOCIAL HISTORY: No smoking. 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 REVIEW OF SYSTEMS: Complete review of system obtained. Review of systems negative for constitutiona l, HEENT, GI, pulmonary, cardiovascular, , hematology, skin, musculoskeletal, endocrine, psych, exc ept for positives as in HPI. FAMILY HISTORY: Positive for coronary disease. PHYSICAL EXAMINATION: GENERAL: Well-developed, well-nourished female, in no acute distress. VITAL SIGNS: Temperature is 36.7, pulse is 60, blood pressure 133/77, 98% on room air. HEENT: Eyes: Nor mal conjunctivae. Pupils equal, react to light. ENT normal ears, nose. Hearing intact. Normal yoshi th. Oropharynx moist. NECK: Trachea midline. No thyromegaly. CHEST: Normal respiratory effort. LUNGS: Clear to auscultation bilaterally. CARDIOVASCULAR: Regular rhythm. No murmur. No extremity edema. ABDOMEN: Soft, nontender. No hepatosplenomegaly. SKIN: Warm, dry, intact. No rash. MUS CULOSKELETAL: No cyanosis or clubbing. Strength 5/5 upper and lower extremities. NEUROLOGIC: Cran ial nerves intact. Normal sensation to light touch. PSYCHIATRIC: Alert and oriented x3. Normal af fect. Normal judgment. Normal memory. LABORATORY DATA: White count 6.1, hematocrit 40.8, platelets 261. Sodium 144, potassium 3.4, chlori de 108, bicarb 26, BUN 9, creatinine 0.6, glucose 82. Troponins negative. INR 0.96. EKG viewed by me. My personal interpretation: Normal sinus rhythm. No ST or T-wave changes. Chest x-ray is negative. ASSESSMENT/PLAN: 1. Chest pain. Will follow serial troponins. If these remain negative, we will order Lexiscan stre ss test in the morning. 2. Epigastric pain. There is also the possibility that some of her chest pain may also be gastroint estinal in origin. We will start with a right upper quadrant ultrasound and check LFTs and lipase in the morning. If her symptoms continue this severely, could consider esophagogastroduodenoscopy vers us empiric proton pump inhibitor. 3. Coronary artery disease. Recent ST-elevation myocardial infarction status post stent to the left anterior descending. Complicated by coronary perforation. Continue aspirin, Effient, statin, and b eta sonia. 4. Right lower extremity neuropathy and foot drop due to previous spinal surgery. For this reason, she cannot do the treadmill stress test, so Lexiscan as above. CODE STATUS: Full. ADMISSION STATUS: Will admit to observation. Will reevaluate tomorrow ongoing need for hospitalizat ion. DVT PROPHYLAXIS: She is low risk. LENGTH OF STAY: Anticipate short stay. /[id number]/MODL
[2017-08-19] MEDS ORDERED: LORazepam 0.5 MG TAB PO ONE (22:30)
[2017-08-19] MEDS ORDERED: MAGNESIUM OXIDE 400 MG TAB PO ONE (22:30)
[2017-08-19] MEDS ORDERED: POTASSIUM CITRATE 10 MEQ TAB PO ONE (22:30)
[2017-08-20] MEDS ORDERED: ATORVASTATIN CALCIUM 40 MG TAB PO SCH ×2 (09:00→21:00)
--- NOTE | 2017-08-20 09:27 | HOSPPROG ---
Hospitalist Progress Note Assessment/Plan: 62 yo F w cad a/w epigastric pain w vomiting cad: sx similar to STEMI in 12/01 could certainly be ischemic notably, no trop leak lexiscan today ? peptic ulcer disease: some dark vomiting no melena not anemia DAP noted consider egd cholelithiasis: HIDA if stress neg proph: scd Subjective: cxr w no acute cardiopulm disease (interp by me). ekg non ischemic (interp by me) Objective: Vital Signs Temp Pulse Resp BP Pulse Ox 36.6 C 63 19 114/63 98 08/20/17 08:08 08/20/17 08:08 08/20/17 08:08 08/20/17 08:08 08/20/17 08:08 08/19/17 08/20/17 08/21/17 05:59 05:59 05:59 Intake Total 350 Balance 350 PT 13.0 SEC (12.0-15.0) 08/19/17 17:20 INR 0.96 (0.83-1.16) 08/19/17 17:20 - Physical Exam Constitutional: no apparent distress, appears nourished Eyes: PERRL, anicteric sclera Ears, Nose, Mouth, Throat: moist mucous membranes, hearing normal Cardiovascular: regular rate and rhythym, no murmur, rub, or gallop, No systolic murmur Respiratory: no respiratory distress, no rales or rhonchi, clear to auscultation Gastrointestinal: normoactive bowel sounds, soft, non-tender abdomen, No loving' s sign Genitourinary: No cook in urethra Skin: warm, normal color Musculoskeletal: full muscle strength, no muscle tenderness Neurologic: AAOx3, sensation intact bilaterally Psychiatric: interacting appropriately ICD10 Worksheet Patient Problems: Problems Problem Status Onset Chest pain Acute Chest pressure Acute Diaphoresis Acute Coronary artery disease Acute Status post insertion of drug-eluting stent into left anterior descending (LAD) artery Acute
[2017-08-20] MEDS ORDERED: REGADENOSON 0.4 MG/5 ML SYR IVP ONE (11:37)
--- NOTE | 2017-08-20 12:52 | ECHO ---
[email or web address] [address] [address] Main: [phone] Fax: [email or web address] Echocardiogram Name: DEXTER GALICIA MR#: [id number] Study Date: 08/20/2017 Study Time: 09:41 AM Date of : 1955 Age: 62 year(s) Height: 165.1 cm (65 in.) Weight: 57.61 kg (127 lb.) BSA: 1.63 m2 Gender: Female Examination: Echo Indication: Coronary artery disease, cp Image Quality: Adequate Contrast: Requested by: Nabor De La O BP: 114 mmHg/63 mmHg Heart Rate: Rhythm: Indication: Coronary artery disease, cp Procedure Staff Sales Data Analyst: Jeny Smith RDCS Reading Physician: Tunde Barba MD Requesting Provider: Conclusions: Normal global systolic LV function. The ejection fraction is visually estimated to be 60 %. Mild mitral valve regurgitation is present. Mild aortic valve regurgitation is present. Mild tricuspid regurgitation is present. The pulmonary artery pressure is normal. Measurements: Chambers Valvular Assessment AV/MV Valvular Assessment TV/PV Normal Normal Normal Name Value Range Name Value Range Name Value Range Ao Ann Marie (2D): 2.7 cm (1.4 cm-2.6 AV Vmax: 1.00 m/s (1 m/s-1.7 PV Vmax: 0.68 m/s (0.6 m/s-0.9 cm) m/s) m/s) IVSd (2D): 1.0 cm (0.6 cm-1.1 AV meanP mmHg ( - ) PV PGmax: 2 mmHg ( - ) cm) TIMOTHY (VTI): 2.1 cm ( - ) LVDd (2D): 4.0 cm (3.9 cm-5.3 MV E Vmax: 0.67 m/s ( - ) cm) MV A Vmax: 0.53 m/s ( - ) LVDs (2D): 2.3 cm (2.1 cm-4 MV E/A: 1.26 ( - ) cm) MV PHT: 0.060 s ( - ) LVPWd (2D): 1.0 cm ( - ) MVA (PHT): 3.7 s ( - ) LVOTd 1.9 cm 1.9 cm mm LVEF (BP): 68 % (>=55 %) Visual EF: 60 % RVDd(2D): 3.1 cm (1.9 cm-3.8 cmmm) Continued Measurements: Chambers Valvular Assessment AV/MV Valvular Assessment TV/PV Name Value Name Value Name Value Patient: DEXTER GALICIA Study Date: 08/20/2017 Page 1 of 2 09:41 AM LADs: 3.2 cm MV DecTime: 201 m/s CVP (est.): 5 mmHg LADs Lon.3 cm MV E' Septal: 0.09 m/s LA Area: 13.4 cm2 MV E/E' Septal: 7.30 LA Volume: 38 ml MV E/E' Lateral: 6.10 LA Volume Index: 23.3 ml/m2 RA Area: 10.9 cm2 Additional Vessels Name Value Ao Ascendin.2 cm Inferior Vena Cava: 1.1 cm Findings: Left Ventricle: Normal size left ventricle. No LV hypertrophy. Normal global systolic LV function. The ejection fraction is visually estimated to be 60 %. No regional wall motion abnormality. Normal diastolic LV function. Possible mid inferoseptal hypokinesis. Right Ventricle: Normal size right ventricle. Normal RV function. Left Atrium: The left atrium is normal in size. Right Atrium: The right atrium is normal in size. Mitral Valve: The mitral valve is normal in appearance and function. Mild mitral valve regurgitation is present. No mitral stenosis is present. Aortic Valve: The aortic valve is tri-leaflet. Mild aortic valve regurgitation is present. No aortic valve stenosis is present. Tricuspid Valve: The tricuspid valve is normal in appearance and function. Mild tricuspid regurgitation is present. The pulmonary artery pressure is normal. Pulmonic Valve: The pulmonic valve is normal in appearance and function. There is no pulmonic regurgitation seen. Aorta: The aorta is normal. Normal size aortic root measuring 2.7 cm. Normal size ascending aorta measuring 2.2 cm. IVC: The IVC is normal sized. Pericardium: No pericardial effusion. No pleural effusion. Exam Comments: Some shadowing due to possible breast implants. (No Signature Object) Patient: DEXTER GALICIA Study Date: 08/20/2017 Page 2 of 2 09:41 AM [id number]
[2017-08-20] MEDS: PRASUGREL HCL 10 MG TAB PO SCH (12:58)
[2017-08-20] MEDS: ASPIRIN EC 81 MG TAB PO SCH (12:58)
[2017-08-20] MEDS: ACETAMINOPHEN 325 MG TAB PO PRN (12:58)
[2017-08-20] MEDS: LEVOTHYROXINE 50 MCG TAB PO SCH (12:58)
[2017-08-20] MEDS: LISINOPRIL 2.5 MG TAB PO SCH (12:58)
--- NOTE | 2017-08-20 12:59 | CPR ---
[f rep st] NONINVASIVE CARDIAC PROCEDURE REPORT PROCEDURE: Lexiscan injection and myocardial perfusion imaging study. INDICATION FOR PROCEDURE: History of chest pressure, known history of coronary artery disease, with PCI and stent implantation in November of 2016. PRE: After obtaining informed consent, consent ensuring patient's n.p.o. status, no caffeine for gre ater than 12-hours, the patient was placed on electrocardiogram. Initial EKG shows sinus bradycardia , normal axis, no significant ST or T-wave abnormalities. Blood pressure is 130/76, saturation 97% o n room air. INJECTION: Patient was given Lexiscan slow IV push followed by nuclear isotope. Patient reports ini tially of flush sensation and shortness of breath, post injection within 1-minute. Heart rate did el evate to 94 beats per minute, but no significant EKG changes, blood pressure decreased to 160/70. Th e patient was given caffeinated beverage, and within 5-minutes post injection patient reported all sy mptoms subsided, heart rate decreased down to 83 beats per minute, no acute EKG changes, blood pressu re increased back to 126/76. IMPRESSION: A 62-year-old female with known history of coronary artery disease with recent percutane ous coronary intervention in November of 2016 undergoing Lexiscan myocardial perfusion imaging study for evaluation of possible cardiac ischemia due to ongoing episodes of chest pressure. The patient reported mild shortness of breath and flushing sensation with injection, which soon subsided with caf feinated beverage, and time. Within 5-minutes, all symptoms subsided, no significant electrocardiogr am changes noted during our post-injection, currently her vital signs are stable, she will finish pos tstress imaging in Nuclear Medicine at this time. /[id number]/MODL
--- NOTE | 2017-08-20 13:55 | ASMTCMCOM ---
CM Note CM Note Notes: 08/20/2017 Case Management Note Pt is employed here at [employer]. Pt was admitted for chest pain and subsequent workup. Met w/patient this morning. There are no discharge needs identified due to pt age, social supports and employment status. Pt is independent in ADL's. Case Management d/c poc: independent with follow up as directed. Case Management available if needs change. Date Signed: 08/20/2017 01:54 PM Electronically Signed By:Kimberly Pepper RN
[2017-08-20] MEDS: ISOSORBIDE MONONITRATE 30 MG TAB.SR PO SCH (16:57)
--- NOTE | 2017-08-20 19:07 | GCON ---
[f rep st] CONSULTATION CARDIOLOGY CONSULTATION REASON FOR CARDIOLOGY CONSULTATION: Chest pressure, known history of CAD. REQUESTING PHYSICIAN: Dr. Nael De La O. HISTORY OF PRESENT ILLNESS: The patient is a 62-year-old female who is known to our practice. 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 She has a significant past history that includes ST elevated VA in November of 2016, she was treated for her VA at [facility], in which she had a prolong ed complex intervention of the LAD with failed radial approach. 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 She does report she h ad 2 stents implanted during this procedure. Post-catheterization, she did have a prolonged ICU stay . She was recently seen on August 19, by Dr. Oliveros at our office, although she had reported at that ti me, in the last 2 weeks of 2 significant episodes in which she developed chest pressure, became signi ficantly diaphoretic, very pale, shakiness, lightheadedness, followed by vomiting. Episodes usually last for about 30 minutes and then dissipated with ongoing fatigue symptoms the following days. Her most recent episode happened last Friday. Reporting ongoing fatigue symptoms over the following Mon ay requiring her to miss work. Due to her previous stenting, and ongoing episodes of chest pressure, she was sent to the emergency department for further evaluation. Upon arrival, she did undergo elec trocardiogram, which showed sinus rhythm with Q-waves noted in V1 and V2, question old anterior septa l infarction. Laboratory studies were negative. Troponins were negative. She did have a chest x-ra y done which showed no acute cardiopulmonary process. She was admitted to the PCU for overnight obse rvation where she had cycled troponins, all within normal limits. Due to her complaint with some yolanda sea, questioning some GI potential for her symptoms. She did undergo abdominal ultrasound which show ed with multiple shadowing stones. No gallbladder thickening or pericholecystit is fluid. Dilated common bile duct up to 8 mm. Full she also had an echocardiogram which showed nor mal LV systolic function with no wall motion abnormalities, EF was estimated at 60%, mild MR, mild AI , mild TR, normal pulmonary pressures. She reports since hospital admission, she has had no further episodes of chest pressure or pain. She has recently had MPI. PAST MEDICAL HISTORY: Includes ST-elevated VA, coronary artery disease, dyslipidemia, right footdrop , hypothyroidism. PAST SURGICAL HISTORY: Includes L4-L5 fusion and percutaneous coronary intervention November with 2 stents implantation in the LAD. FAMILY HISTORY: Positive for coronary artery disease. 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 She denies of any illicit drug use. ALLERGIES: No known drug allergies. MEDICATIONS: At home include Effient 10 mg p.o. daily, Bystolic 2.5 mg p.o. h.s., atorvastatin 80 mg p.o. daily, aspirin 81 mg p.o. daily, lisinopril 2.5 mg p.o. daily, Synthroid 50 mcg p.o. daily. REVIEW OF SYSTEMS: A 10-point review of systems done on this patient all negative except as mentione d above. PHYSICAL EXAMINATION: GENERAL APPEARANCE: Thin, well-groomed female. She is alert and or iented to person, place, time, and situation. Appears to be under no acute distress. VITAL SIGNS: Current vital signs are blood pressure of 130/67, heart rate is 68, respirations 19, saturating 96% o n room air. Temperature 37.1 degrees Celsius. HEENT: Head is normocephalic. Lips and tongue are p ink and moist with no signs of cyanosis. Conjunctivae pink. NECK: Trachea is midline, +2 carotid p ulses bilateral. No auscultated bruits. No jugular vein distention. RESPIRATORY: Lungs are clear to auscultation, no rhonchi, rales or wheezes, no accessory muscle use. No intercostal muscle retrac tion noted. CARDIAC: Regular rate, regular rhythm, S1, S2, no S3, S4, gallops, rubs, or murmur note d. ABDOMEN: Soft, nontender, bowel sounds x4 quadrants, no organomegaly, no palpable masses. SKIN: [place], warm, dry, no cyanosis, no clubbing, no peripheral edema. VASCULAR: +2 carotids bilateral, +2 radials bilateral, +1 dorsal pedal and posterior tibial pulses bilateral. LABORATORY STUDIES: Drawn in the emergency department yesterday showed WBC 6.10, hemoglobin of 13.4, hematocrit of 40.8, platelet count 261. INR of 0.96. Sodium of 144, potassium 3.4, chloride 108, C O2 of 26, BUN 9, creatinine 0.6, calcium 9.3. Initial troponin of less than 0.00. A.M. labs showed total bilirubin of 0.7, bilirubin 0.1 and bilirubin 0.6, AST 36, ALT 45, alkaline phosphate 82. Repeated troponin levels done this morning x2 showing less than 0.012. Total protein was noted to be 6.1, albumin 3.3, lipase 146, TSH 9.950. STUDIES: Electrocardiogram as mentioned above. Chest x-ray as mentioned above. Abdominal ultrasoun d as mentioned above. Echocardiogram as mentioned above. Patient did undergo MPI study this afterno on showing normal LV ejection fraction of 77% with inferior septal wall fixed deficit consistent with old infarction, possible mild cornelia infarct ischemia involving the septal wall. ASSESSMENT AND PLAN: 1. Chest pain: The patient reports no further episodes of chest pain since hospitalization. Negati ve troponins x3, known history of coronary artery disease. MPI study does suggest possible mild cornelia -infarct ischemia involving the septal wall with an old infarction. After reviewing with Dr. Barba results of stress testing, and discussing with patient, it is decided that at the current time, we w ill attempt medical management. She has been resumed on home doses of beta-sonia, we will attempt an FRANCI inhibitor of lisinopril. We will attempt to add isosorbide to her medication regime to see if this helps her with her symptoms. Potentially, symptoms also could be caused from her cholecystitis . She is being followed by hospitalist services. 2. History of coronary artery disease with previous PCI with MARCE implantation: Will continue patien t on home dose of aspirin and Effient. She is on secondary risk prevention with atorvastatin. 3. Dyslipidemia: The patient has been resumed on home dose of atorvastatin, we will order a fasting lipid panel for a.m. for evaluation of therapy. 4. Hypothyroidism: TSH is noted to be elevated, she has been resumed on home dose of Synthroid. Thank you for this consultation. We will be glad to follow along with you, we will potentially re-ev aluate in the morning. If she does have any change in pressure, we could always consider an elective heart catheterization for further evaluation. Plan discussed with Dr. Nael De La O of hospitalist [facility]. /[id number]/MODL
[2017-08-20] MEDS ORDERED: POTASSIUM CL 20 MEQ PKT PO SCH (21:00)
[2017-08-20] MEDS ORDERED: MAGNESIUM OXIDE 400 MG TAB PO SCH (21:00)
[2017-08-20] MEDS ORDERED: NEBIVOLOL HCL 5 MG TAB PO SCH (21:00)
[2017-08-20] MEDS ORDERED: LORazepam 0.5 MG TAB PO ONE (23:52)
[2017-08-21] MEDS: LEVOTHYROXINE 50 MCG TAB PO SCH (07:22)
[2017-08-21] MEDS: ASPIRIN EC 81 MG TAB PO SCH (08:55)
[2017-08-21] MEDS: ISOSORBIDE MONONITRATE 30 MG TAB.SR PO SCH (08:55)
[2017-08-21] MEDS: LISINOPRIL 2.5 MG TAB PO SCH (08:56)
[2017-08-21] MEDS: PRASUGREL HCL 10 MG TAB PO SCH (09:08)
--- NOTE | 2017-08-21 11:14 | PDCARPN ---
Cardiology Progress Note Chief Complaint: Patient reports she is anxious. But has had no chest pain or pressure. Assessment/Plan: Assessment: 62-year-old female with significant past history that includes ST a elevated ME , CAD, PCI 11/2016 with 2 stent implantations in LAD ([facility]), dyslipidemia, hypothyroidism and history of back surgery with right foot drop. Admitted on 08/19 from our office, for reported 2 episodes over the last 2 week with symptoms chest pressure coming on spontaneously with associated symptoms of shortness of breath, fatigue, nausea, vomiting, and diaphoresis. Last episode was last Friday. Initial electrocardiogram done emergency department showed sinus bradycardia, with Q-waves noted in V1 and V2, ST or T-wave abnormalities. This was unchanged from previous electrocardiogram done office 01/28/2017. She has had 3-troponins. Echocardiogram done 08/20/2017 showed normal LV EF of 60%, normal LV systolic function with no wall motion abnormality , mild MR, mild, TR, RVSP. Abdominal ultrasound 08/20/2017 noted cholelithiasis, no gallbladder wall thickning or pericholecystic fluid, dilated common bile duct. MPI on 08/20/2017 showed normal LV EF of 77%, inferior septal wall fixed deficit consistent with infarct. Possible mild cornelia-infarct ischemia involving the septal wall. Patient has been asymptomatic of any chest pressure or pain since hospital admission. Low risk stress test, patient known to have a very difficult heart catheterization during her ME. Attempt medical manage, started on isosorbide last evening. Today: Patient seen with Dr Barba today. Overnight she has been asymptomatic of any chest pressure, pain, shortness of breath or symptoms suggesting of ischemia. Reporting no adverse reaction with isosorbide. She has maintained sinus rhythm with rare PVC, no other malignant arrhythmias or pauses noted. Laboratory studies today show mildly elevated chloride at 111, rest of electrolyte renal function within normal limits. Fasting lipid panel did show adequate suppression of LDL at 34. Plan: 1. Chest pain/CAD: Patient reports no chest pain, pressure, or shortness of breath since hospitalization. Negative troponins x3. Echocardiogram noted to have normal LV wall motion with normal EF. MPI study showing old infarct, with mild cornelia infarct ischemia. After discussion with patient, will attempt medical therapy at 1st. If recurrence of symptoms, then consideration of heart catheterization. She will continue on current anti-platelet therapy of aspirin and Effient. She remains on beta-sonia of Bystolic, Francisco inhibitor of lisinopril, and has started on isosorbide. She has been encouraged to ambulate today, if no further symptoms, then can be discharged home. Will plan on quick follow-up in the next week in our office for re-evaluation, next 6 days.. 2. Hyperlipidemia: Laboratory studies today show adequate suppression of LDL atorvastatin, no changes at this time. 3. Hypothyroidism: Resume on home Synthroid medications. 4. Cholelithiasis: Patient to follow-up with PCP. 08/21/17 11:12 Subjective: Patient reports no chest pain or pressure. Reports no shortness of breath, lightheadedness, palpitations, orthopnea, PND, near-syncope or syncopal events. Reviewed/Discussed With: hospitalist (Dr. De La O), other (Dr Barba and Dr Oliveros ) Objective: Vital Signs (8 Hrs) Temp Pulse Resp BP Pulse Ox 08/21/17 08:53 36.6 C 55 L 16 114/69 98 08/21/17 04:00 36.6 C 50 L 16 95/54 L 96 Intake/Output (24 Hrs) 08/20/17 08/21/17 08/22/17 05:59 05:59 05:59 Intake Total 350 900 Output Total 750 Balance 350 150 Intake: Oral (ml) 350 900 Output: Urine (ml) 750 Toilet 750 Other: Weight 57.7 kg Number of Voids Toilet 2 Number of Stools Toilet 1 Result Diagrams: 08/19/17 17:20 08/21/17 04:02 Cardiac Labs: Cardiac Lab Results (72 Hrs) 08/20/17 08/19/17 04:15 23:20 Troponin I < 0.012 < 0.012 - Physical Exam Constitutional: WDWN, no apparent distress Ears, Nose, Mouth, Throat: moist mucous membranes Cardiovascular: regular rate and rhythm, no murmurs, no rubs, no gallops, No jugular vein distention, No carotid bruit Peripheral Pulses: 2+: carotid (R), carotid (L), dorsalis-pedis (R), dorsalis- pedis (L) Respiratory: clear to auscultate bilat, no crackles, no wheezes Gastrointestinal: normoactive bowel sounds, no tenderness Skin: no rashes, no edema Neurologic: AAOx3 Psychiatric: cooperative, interactive, following commands, anxious ICD10 Worksheet Patient Problems: Problems Problem Status Onset Chest pressure Acute Diaphoresis Acute Status post insertion of drug-eluting stent into left anterior descending (LAD) artery Acute Coronary artery disease Acute Chest pain Acute
[2017-08-21 11:38] VITALS: BP 101/54
[2017-08-21] MEDS: ACETAMINOPHEN 325 MG TAB PO PRN (13:10)
--- NOTE | 2017-08-21 14:13 | HOSPPROG ---
Hospitalist Progress Note Assessment/Plan: 62 yo F w cad a/w epigastric pain w vomiting cad: sx similar to STEMI in 12/01 could certainly be ischemic notably, no trop leak lexiscan today ? peptic ulcer disease: some dark vomiting no melena not anemia DAP noted consider egd cholelithiasis: normal lft's needs further eval if ongoing sx d/w pt proph: scd Objective: Vital Signs Temp Pulse Resp BP Pulse Ox 36.6 C 79 16 101/54 L 98 08/21/17 11:37 08/21/17 11:37 08/21/17 11:37 08/21/17 11:37 08/21/17 11:37 Laboratory Results 08/21/17 04:02 08/20/17 08/21/17 08/22/17 05:59 05:59 05:59 Intake Total 350 900 Output Total 750 Balance 350 150 PT 13.0 SEC (12.0-15.0) 08/19/17 17:20 INR 0.96 (0.83-1.16) 08/19/17 17:20 - Physical Exam Constitutional: no apparent distress, appears nourished Eyes: PERRL, anicteric sclera Ears, Nose, Mouth, Throat: moist mucous membranes, hearing normal Cardiovascular: regular rate and rhythym, no murmur, rub, or gallop Respiratory: no respiratory distress, no rales or rhonchi Gastrointestinal: normoactive bowel sounds, soft, non-tender abdomen Genitourinary: No cook in urethra Skin: warm, normal color Musculoskeletal: full muscle strength Neurologic: AAOx3 ICD10 Worksheet Patient Problems: Problems Problem Status Onset Chest pain Acute Chest pressure Acute Diaphoresis Acute Coronary artery disease Acute Status post insertion of drug-eluting stent into left anterior descending (LAD) artery Acute
--- NOTE | 2017-08-21 14:37 | GDS ---
[f rep st] DISCHARGE SUMMARY DISCHARGE DIAGNOSES: 1. History of coronary disease with left anterior descending artery stent. 2. Nausea and vomiting. 3. Cholelithiasis. 4. Hypothyroidism. HOSPITAL COURSE: Please see admission history and physical by Dr. Juana Fletcher. The patient prese nted with nausea and vomiting, concerning for possible anginal equivalent. She had negative troponin s. She had an EKG that was nonischemic. She underwent stress test, showing normal LVEF of 77%, infe rior septal wall fixed defect consistent with old infarct, possible mild cornelia-infarct ischemia. She had an echocardiogram with no LV wall motion abnormalities. 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 Symptomatic cholelithiasis was considered but not pursued given the fact that her symptoms were ashley rning for angina. If she should continue to have symptoms, then I think it would be appropriate to p lyleue a repeat ultrasound or HIDA scan. I discussed these findings with her. /[id number]/MODL
== END 2017-08-21 14:52 | disposition home or self-care (01) ==
LOC: INTOOBSV 18:52 → F2W 20:16
PROVIDERS: ADMIT Internal Medicine; ATTEND Internal Medicine
DX: R07.89 Other chest pain (principal); I25.10 Atherosclerotic heart disease of native coronary artery without angina pectoris; E03.9 Hypothyroidism, unspecified; R11.2 Nausea with vomiting, unspecified; E78.5 Hyperlipidemia, unspecified; M21.371 Foot drop, right foot; K80.20 Calculus of gallbladder without cholecystitis without obstruction; I25.2 Old myocardial infarction; Z95.5 Presence of coronary angioplasty implant and graft; Z98.1 Arthrodesis status
CPT/HCPCS: 71045; 76700; 78452; 93005; 93017; 93306; 99285; A9500; G0378; 84484-PO; J2550; J2785

== ENCOUNTER 2018-01-23 09:54 | Observation (INO) | payer OTHER ==
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
[2018-01-23 10:26] LABS: PLATELET COUNT 285 10^3/uL (150-400)
[2018-01-23] MEDS ORDERED: ONDANSETRON 4 MG/2 ML VIAL IVP ONE (10:30)
[2018-01-23] MEDS ORDERED: ASPIRIN 81 MG CHEWABLE TAB PO ONE (10:30)
[2018-01-23] MEDS ORDERED: NS 1,000 ML IV ONE (10:30)
--- NOTE | 2018-01-23 12:51 | PDGENHP ---
History and Physical - Chief Complaint Chest pains - History of Present Illness 62 y/o female who has a history of ST-elevation AR in November 2016, requiring stent to LAD complicated by coronary perforation presents to the ED today with chest pains similar to the chest pains experienced during her STEMI. Pain located mid-epigastric area and radiates underneath bilateral breasts, RUE numbness and bilateral tingling hands. She experienced this at 5:00am and took one nitroglycerin; it did not alleviate the pain but because she "wasn't thinking straight," she took another nitroglycerin one hour later, not 5 minutes later. Pain was not alleviated with second nitroglycerin. Pain was 9/ 10. + nausea, blurry vision, SOB, headache. Denies vomiting, fevers, chills. Her pain has decreased since being admitted and receiving aspirin in the ED to a 6/10 but feels like the pain is beginning to increase again. She is anxious about the possibility of undergoing a cath after experiencing the coronary perforation. Past Medical/Surgical History 1. Stent placement complicated by coronary perforation in November 2016 2. Right lower extremity neuropathy and foot drop as a result L4-L5 fusion 3. Hypothyroidism Vital Signs 137/66 62 99% 2L NC 20 Respirations History Information - Allergies/Home Medication List Allergies/Adverse Reactions: No Known Allergies Allergy (Verified 01/23/18 09:57) Home Medications: Aspirin EC [Aspirin EC 81 mg (*)] 81 mg PO DAILY 01/14/17 [Last Taken 01/22/18] Atorvastatin Calcium 80 mg PO HS 01/14/17 [Last Taken 01/22/18] Levothyroxine [Synthroid 50 mcg (*)] 50 mcg PO DAILY06 01/14/17 [Last Taken 11/01] Lisinopril 2.5 mg PO DAILY 01/14/17 [Last Taken 01/22/18] Nebivolol HCl [Bystolic] 2.5 mg PO HS 08/19/17 [Last Taken 01/22/18] Prasugrel HCl [Effient 5mg (*)] 5 mg PO DAILY 01/23/18 [Last Taken 01/22/18] Ranolazine [Ranexa] 500 mg PO HS 01/23/18 [Last Taken 01/22/18] I have personally reviewed and updated: family history, medical history, social history, surgical history Past Medical History: See HPI list - Surgical History Additional surgical history: See HPI list - Family History Additional family history: Coronary artery disease - Social History Smoking Status: Never smoked Alcohol Use: Rarely Drug Use: None 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[employer]; Mar, daughter, at bedside with patient Review of Systems Review of Systems: ROS: 10pt was reviewed & negative except for what was stated in HPI & below Constitutional: Reports: other (Overall, feeling well until this event) EENMT: Reports: blurred vision Cardiac: Reports: chest pain Respiratory: Reports: shortness of breath Gastrointestinal: Reports: no symptoms Genitourinary: Reports: no symptoms Muscolosketal: Reports: no symptoms Skin: Reports: no symptoms Neurological: Reports: anxiety, headache, numbness, tingling Hematologic/Lymphatic: Reports: no symptoms Immunologic/Allergy: Reports: no symptoms Physical Exam Physical Exam: Lab data and imaging reviewed: Trop: Neg EKG: Sinus sarah, no ST elevation and depression CXR: No acute findings in the chest Temp Pulse Resp BP Pulse Ox 36.4 C 60 20 157/66 H 99 01/23/18 09:59 01/23/18 12:00 01/23/18 12:00 01/23/18 12:00 01/23/18 12:00 Constitutional: appears nourished, uncomfortable Eyes: PERRL, anicteric sclera, EOMI Ears, Nose, Mouth, Throat: moist mucous membranes, hearing normal, ears appear normal, no oral mucosal ulcers Cardiovascular: regular rate and rhythym, no murmur, rub, or gallop, No edema Peripheral Pulses: 2+: dorsalis-pedis (R) (Radial 2+), dorsalis-pedis (L) ( Radial 2+) Respiratory: no respiratory distress, no rales or rhonchi, clear to auscultation Gastrointestinal: normoactive bowel sounds, soft, non-tender abdomen, no palpable masses Genitourinary: no bladder fullness, no bladder tenderness Skin: warm, normal color, no rashes or abrasions, no fluctuance, no induration, No mottled Musculoskeletal: full muscle strength, no muscle tenderness, normal joint ROM, no joint effusions Neurologic: AAOx3, sensation intact bilaterally, CN II-XII Intact Psychiatric: interacting appropriately, not anxious, not encephalopathic, thought process linear Lymph, Heme, Immunologic: no cervical LAD, no supraclavicular LAD Lab Data & Imaging Review 01/23/18 10:12 01/23/18 10:52 WBC 6.01 10^3/uL (3.80-9.50) 01/23/18 10:12 RBC 4.51 10^6/uL (4.18-5.33) 01/23/18 10:12 Hgb 13.9 g/dL (12.6-16.3) 01/23/18 10:12 Hct 41.9 % (38.0-47.0) 01/23/18 10:12 MCV 92.9 fL (81.5-99.8) 01/23/18 10:12 MCH 30.8 pg (27.9-34.1) 01/23/18 10:12 MCHC 33.2 g/dL (32.4-36.7) 01/23/18 10:12 RDW 13.6 % (11.5-15.2) 01/23/18 10:12 Plt Count 285 10^3/uL (150-400) 01/23/18 10:12 MPV 8.9 fL (8.7-11.7) 01/23/18 10:12 Neut % (Auto) 77.7 % (39.3-74.2) H 01/23/18 10:12 Lymph % (Auto) 16.1 % (15.0-45.0) 01/23/18 10:12 [place] % (Auto) 4.5 % (4.5-13.0) 01/23/18 10:12 Eos % (Auto) 0.5 % (0.6-7.6) L 01/23/18 10:12 Baso % (Auto) 1.0 % (0.3-1.7) 01/23/18 10:12 Nucleat RBC Rel Count 0.0 % (0.0-0.2) 01/23/18 10:12 Absolute Neuts (auto) 4.67 10^3/uL (1.70-6.50) 01/23/18 10:12 Absolute Lymphs (auto) 0.97 10^3/uL (1.00-3.00) L 01/23/18 10:12 Absolute Monos (auto) 0.27 10^3/uL (0.30-0.80) L 01/23/18 10:12 Absolute Eos (auto) 0.03 10^3/uL (0.03-0.40) 01/23/18 10:12 Absolute Basos (auto) 0.06 10^3/uL (0.02-0.10) 01/23/18 10:12 Absolute Nucleated RBC 0.00 10^3/uL (0-0.01) 01/23/18 10:12 Immature Gran % 0.2 % (0.0-1.1) 01/23/18 10:12 Immature Gran # 0.01 10^3/uL (0.00-0.10) 01/23/18 10:12 Sodium 139 mEq/L (135-145) 01/23/18 10:52 Potassium 3.9 mEq/L (3.3-5.0) 01/23/18 10:52 Chloride 109 mEq/L (97-110) 01/23/18 10:52 Carbon Dioxide 21 mEq/l (22-31) L 01/23/18 10:52 Anion Gap 9 mEq/L (6-14) 01/23/18 10:52 BUN 15 mg/dL (7-23) 01/23/18 10:52 Creatinine 0.7 mg/dL (0.6-1.0) 01/23/18 10:52 Estimated GFR > 60 01/23/18 10:52 Glucose 106 mg/dL (70-100) H 01/23/18 10:52 Calcium 9.8 mg/dL (8.5-10.4) 01/23/18 10:52 Total Bilirubin 0.7 mg/dL (0.1-1.4) 01/23/18 10:52 Conjugated Bilirubin 0.1 mg/dL (0.0-0.5) 01/23/18 10:52 Unconjugated Bilirubin 0.6 mg/dL (0.0-1.1) 01/23/18 10:52 AST 43 IU/L (14-46) 01/23/18 10:52 ALT 45 IU/L (9-52) 01/23/18 10:52 Alkaline Phosphatase 100 IU/L (38-126) 01/23/18 10:52 POC Troponin I 0.00 ng/mL (0.00-0.08) 01/23/18 10:27 NT-Pro-B Natriuret Pep 535 pg/mL (0-125) H 01/23/18 10:52 Total Protein 6.5 g/dL (6.3-8.2) 01/23/18 10:52 Albumin 3.7 g/dL (3.5-5.0) 01/23/18 10:52 Lipase 219 IU/L (23-300) 01/23/18 10:52 Assessment & Plan Plan: A: 62 y/o female who has a history of ST-elevation AR in November 2016, requiring stent to LAD complicated by coronary perforation presents to the ED today with chest pains similar to the one she had in November 2016 during her STEMI. Differential diagnoses: Unstable angina, ACS, AR. 1. Chest pains: It is concerning she is still experiencing chest pains. Dr. Schmidt consulted and aware; at bedside with pt now. -STAT EKG; cycle EKGs Q6H -Cycle trops -Hold all home medications for now; will wait for cards recommendation -Nitro x 3, morphine for CP 2. Coronary artery disease: hold home medications for now. 3. Right lower extremity neuropathy and foot drop: await cards recommendation. If no cath today, will consider Lexiscan as pt will not be able to perform on a treadmill. Diet: NPO VTE ppx: SCDs Code: Full Dispo: Admit to obs
[2018-01-23] MEDS: NITROGLYCERIN 0.4 MG BTL SL PRN ×3 (13:45→13:56)
[2018-01-23] MEDS ORDERED: LORazepam 2 MG/ML INJ IVP PRN (13:47)
[2018-01-23 13:55] LABS: PROTIME(PATIENT) 13.4 SEC (12.0-15.0)
--- NOTE | 2018-01-23 14:22 | ASMTCMCOM ---
CM Note CM Note Notes: Pt is a 62 y/o female admitted for chest pain. 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 CM available for changes. Plan: Independent Date Signed: 01/23/2018 02:18 PM Electronically Signed By:KRYSTEN Mccullough
[2018-01-23] MEDS ORDERED: IOPAMIDOL (ISOVUE-370) 150 ML BTL IV ONE ×2 (15:13→17:17)
[2018-01-23] MEDS ORDERED: LIDOCAINE 1% 300 MG/30 ML SDV ONE (15:13)
--- NOTE | 2018-01-23 15:31 | PDANEPAE ---
ANE History of Present Illness Heart catheterization. Hx STEMI 12/01. Angina today ANE Past Medical History - Cardiovascular History Hx Hypertension: Yes Hx Arrhythmias: No Hx Chest Pain: Yes Hx Coronary Artery / Peripheral Vascular Disease: Yes Hx CHF / Valvular Disease: No Hx Palpitations: No - Pulmonary History Hx COPD: No Hx Asthma/Reactive Airway Disease: No Hx Recent Upper Respiratory Infection: No Hx Oxygen in Use at Home: No Hx Sleep Apnea: No - Endocrine History Hx Diabetes: No Hypothyroid: No Hyperthyroid: No Obesity: no - Chronic Pain History Chronic Pain: Yes (neuropathy R leg) ANE Review of Systems Review of Systems: - Exercise capacity METS (RN): 4 METS ANE Patient History - Allergies Allergies/Adverse Reactions: No Known Allergies Allergy (Verified 01/23/18 09:57) - Home Medications Home Medications: Aspirin EC [Aspirin EC 81 mg (*)] 81 mg PO DAILY 01/14/17 [Last Taken 01/22/18] Atorvastatin Calcium 80 mg PO HS 01/14/17 [Last Taken 01/22/18] Levothyroxine [Synthroid 50 mcg (*)] 50 mcg PO DAILY06 01/14/17 [Last Taken 11/01] Lisinopril 2.5 mg PO DAILY 01/14/17 [Last Taken 01/22/18] Nebivolol HCl [Bystolic] 2.5 mg PO HS 08/19/17 [Last Taken 01/22/18] Prasugrel HCl [Effient 5mg (*)] 5 mg PO DAILY 01/23/18 [Last Taken 01/22/18] Ranolazine [Ranexa] 500 mg PO HS 01/23/18 [Last Taken 01/22/18] - NPO status NPO Status: no food or drink >8 hours - Smoking Hx Smoking Status: Never smoked - Alcohol Use Alcohol Use: Rarely ANE Labs/Vital Signs - Labs Result Diagrams: 01/23/18 10:12 01/23/18 10:52 - Vital Signs Blood Pressure: 146/68 Heart Rate: 61 Respiratory Rate: 19 O2 Sat (%): 99 Height: 165.1 cm Weight: 58.4 kg ANE Physical Exam - Airway Neck exam: decreased ROM Mallampati Score: Class 2 Mouth exam: normal dental/mouth exam - Pulmonary Pulmonary: no respiratory distress, no rales or rhonchi - Cardiovascular Cardiovascular: regular rate and rhythym, no murmur, rub, or gallop - ASA Status ASA Status: III ANE Anesthesia Plan Anesthesia Plan: GA with mask (Deep Iv sedation)
--- NOTE | 2018-01-23 15:32 | CPEKG ---
Test Reason : OPEN Blood Pressure : / mmHG Vent. Rate : 047 BPM Atrial Rate : 047 BPM P-R Int : 156 ms QRS Dur : 080 ms QT Int : 475 ms P-R-T Axes : 041 025 030 degrees QTc Int : 420 ms Sinus bradycardia Confirmed by Eric Pineda ([id number]) on 01/23/2018 3:32:15 PM Referred By: Confirmed By:Eric Pineda
[2018-01-23] MEDS ORDERED: fentaNYL 100 MCG/2 ML INJ ONE ×3 (15:36→22:04)
[2018-01-23] MEDS ORDERED: MIDAZOLAM 2 MG/2 ML VIAL ONE (15:36)
[2018-01-23] MEDS ORDERED: LIDOCAINE 2% 5 ML SDV ONE (15:39)
[2018-01-23] MEDS ORDERED: ACETAMINOPHEN 325 MG TAB PO PRN (16:31)
[2018-01-23] MEDS ORDERED: ONDANSETRON 4 MG/2 ML VIAL IVP PRN ×2 (16:31→17:56)
[2018-01-23] MEDS ORDERED: BIVALIRUDIN 250 MG/5 ML VIAL IV ONE (16:38)
--- NOTE | 2018-01-23 16:39 | HOSPPROG ---
Hospitalist Progress Note Assessment/Plan: Patient discussed at length with Arielle Matthews [employer] and agree with her H&P. Patient seen and examined. Long discussion with Meredith regarding risk and benefits of cardiac catheterization. She is very fearful of cath given her complicated course at [facility] with her STEMI. However, she continues to have chest pain 6 /10 continuously, consistent with her previous NV. Only slight relief with SL nitro. Cardiology feels cath is indicated. She requests Dr. Piña who I spoke with and he has agreed to see the patient and discuss possible procedure. Review of Dr. Oliveros's notes in [place] clarifies her hospital course at [facility]. Dr. Oliveros previously reviewed their records. She never has LAD perf. She had LAD dissection with stent placement which is known possible complication, treated with a second stent. One of her perforators had to be sacrificed for stent placement. She failed radial artery approach and had to have femoral access. Procedure was complicated by ICU stay after cath due to severe delirium as reaction to anesthesia, as well as hemorrhage at femoral artery access site. Subjective: Still with 6/10 chest pain continuously Objective: Vital Signs Temp Pulse Resp BP Pulse Ox 36.4 C 61 19 146/68 H 99 01/23/18 12:55 01/23/18 15:33 01/23/18 15:33 01/23/18 15:33 01/23/18 15:33 01/22/18 01/23/18 01/24/18 05:59 05:59 05:59 Intake Total 1000 Balance 1000 PT 13.4 SEC (12.0-15.0) 01/23/18 13:32 INR 1.00 (0.83-1.16) 01/23/18 13:32 EKG viewed, my personal interpretation is - NSR, no STEMI case d/w Dr. Schmidt and Dr. Piña old chart reviewed in [place] per above Laboratory Tests 01/23/18 01/23/18 10:52 13:32 Troponin I < 0.012 LDL Cholesterol, Calc 45 L - Physical Exam Constitutional: no apparent distress, appears nourished, not in pain Respiratory: no respiratory distress, No expiratory wheeze, No inspiratory crackles, No rhonchi Gastrointestinal: normoactive bowel sounds, soft, non-tender abdomen, no palpable masses Skin: no rashes or abrasions, no fluctuance, no induration Neurologic: AAOx3, sensation intact bilaterally Psychiatric: interacting appropriately, not anxious, not encephalopathic, thought process linear ICD10 Worksheet Patient Problems: Problems Problem Status Onset Chest pressure Acute Diaphoresis Acute Status post insertion of drug-eluting stent into left anterior descending (LAD) artery Acute Coronary artery disease Acute Chest pain Acute
[2018-01-23] MEDS ORDERED: HEPARIN 10,000 UNIT/10 ML MDV (1,000 UNIT/ML) ONE (16:42)
[2018-01-23] MEDS ORDERED: NITROGLYCERIN 1,500 MCG/15 ML VIAL MISC ONE (17:15)
[2018-01-23] MEDS ORDERED: ATROPINE SULFATE 1 MG/10 ML SYR IVP PRN (17:30)
[2018-01-23] MEDS ORDERED: CLOPIDOGREL BISULFATE 75 MG TAB PO ONE (17:30)
[2018-01-23] MEDS ORDERED: CLOPIDOGREL BISULFATE 75 MG TAB ONE (17:44)
[2018-01-23] MEDS ORDERED: NALOXONE HCL 0.4 MG/ML INJ IVP PRN (17:56)
--- NOTE | 2018-01-23 18:02 | POSTANESTH ---
Post Anesthetic Evaluation Cardiovascular Status: Similar to Pre-Op Cond Respiratory Status: Normal, Stable Level of Consciousness/Mental Status: Can Participate in Eval Pain Control: Adequate, Prn Tx Ordered Nausea/Vomiting Control: Adequate, Prn Tx Ordered Complications Possibly Related to Anesthesia: None Noted
[2018-01-23] MEDS ORDERED: RANOLAZINE 500 MG TAB.ER PO SCH (21:00)
[2018-01-23] MEDS ORDERED: NEBIVOLOL HCL 5 MG TAB PO SCH (21:00)
[2018-01-23] MEDS ORDERED: ATORVASTATIN CALCIUM 40 MG TAB PO SCH (21:00)
[2018-01-23] MEDS: fentaNYL 100 MCG/2 ML INJ IVP PRN ×2 (21:25→22:05)
--- NOTE | 2018-01-23 22:52 | CPIP ---
DATE OF PROCEDURE: 01/23/2018 PROCEDURE: 1. Coronary angiography. 2. Left ventriculography. 3. Intravascular ultrasound of left anterior descending coronary artery. 4. Stenting of left anterior descending coronary artery with Synergy drug-eluting stent. INDICATION: 1. Known coronary vascular disease with previous stenting of left anterior descending coronary arter y. 2. Acute coronary syndrome. ACCESS: Patient was prepped and draped in the sterile fashion. 1% lidocaine was used to anesthetize the left inguinal region. A 6-Kazakh introducer sheath was placed selectively in the left common fe moral artery via modified Seldinger technique. CORONARY ANGIOGRAPHY: A 6-Kazakh JL4 was advanced to the left main coronary artery and images obtain ed. The left main coronary artery bifurcated into an LAD and circumflex coronary arteries. The left main coronary artery appeared normal. The left anterior descending coronary artery was previously s tented in the proximal mid segments. The previously placed stents were widely patent with mild in-st ent restenosis. Distal to the mid stent, there appeared to be a dissection flap that was not flow-li miting. The circumflex coronary artery was a large vessel but was nondominant. Circumflex coronary artery appeared normal. A 6-Kazakh JR4 was advanced to the right coronary artery and images obtained . The right coronary artery is dominant. The right coronary artery appeared normal. LEFT VENTRICULOGRAPHY: A 6-Kazakh pigtail catheter was advanced in the left ventricle and images obt ained. Left ventricle was in normal size, had normal systolic function. Estimated ejection fraction was 70%. INTRAVASCULAR ULTRASOUND OF THE LEFT ANTERIOR DESCENDING CORONARY ARTERY: A 6-Kazakh EBU 3.5 cathete r was advanced to the left main coronary artery and images obtained. Angiography confirmed the prese nce of probable dissection flap distal to the mid LAD stents. A Luge wire was placed in the distal v essel and position verified by angiography. Intravascular ultrasound was advanced and images obtaine d. The intravascular ultrasound demonstrated incomplete stent expansion of the distal-most stent. D istal to the stent, a dissection flap could be seen. Distal to the dissection flap, the left anterio r descending coronary artery was intramyocardial and there was evidence of myocardial bridging. PERCUTANEOUS CORONARY INTERVENTION OF THE LEFT ANTERIOR DESCENDING CORONARY ARTERY: A 2.75 x 15 Gail ge balloon was placed in the distal stent and deployed. Followup angiography demonstrated complete s tent expansion; however, the dissection flap remained. A 2.5 x 16 Synergy drug-eluting stent was humberto eleni in the mid to distal left anterior descending coronary artery and into the previously placed sten t and deployed. Followup angiography demonstrated JAMIE-3 flow, no residual stenosis, no evidence of residual dissection flap. COMPLICATIONS: None. CONCLUSIONS: 1. Patent left anterior descending artery stents with mild in-stent restenosis. 2. Left anterior descending artery dissection distal to the previously placed stents with incomplete stent expansion. 3. Status post successful stenting of the left anterior descending coronary artery with Synergy drug -eluting stent. /[id number]/MODL
[2018-01-24] MEDS: HYDROCODONE/APAP 5/325 TAB PO PRN ×2 (00:08→04:26)
[2018-01-24 04:48] LABS: PLATELET COUNT 199 10^3/uL (150-400)
[2018-01-24] MEDS ORDERED: LEVOTHYROXINE 50 MCG TAB PO SCH (06:00)
--- NOTE | 2018-01-24 07:30 | CPEKG ---
Test Reason : OPEN Blood Pressure : / mmHG Vent. Rate : 056 BPM Atrial Rate : 056 BPM P-R Int : 143 ms QRS Dur : 082 ms QT Int : 474 ms P-R-T Axes : 041 015 037 degrees QTc Int : 458 ms Sinus rhythm Borderline prolonged QT interval Confirmed by Joe Malin ([id number]) on 01/24/2018 7:30:46 AM Referred By: Confirmed By:Joe Malin
--- NOTE | 2018-01-24 08:07 | CPEKG ---
Test Reason : OPEN Blood Pressure : / mmHG Vent. Rate : 065 BPM Atrial Rate : 064 BPM P-R Int : 148 ms QRS Dur : 080 ms QT Int : 443 ms P-R-T Axes : 056 037 046 degrees QTc Int : 461 ms Sinus rhythm Borderline QT interval Confirmed by Joe Malin ([id number]) on 01/24/2018 8:06:50 AM Referred By: Confirmed By:Joe Malin
[2018-01-24] MEDS ORDERED: PRASUGREL HCL 5 MG TAB PO SCH (09:00)
[2018-01-24] MEDS ORDERED: ASPIRIN EC 325 MG TAB PO SCH (09:00)
[2018-01-24] MEDS ORDERED: CLOPIDOGREL BISULFATE 75 MG TAB PO SCH (09:00)
[2018-01-24] MEDS ORDERED: ASPIRIN EC 81 MG TAB PO SCH (09:00)
[2018-01-24] MEDS ORDERED: LISINOPRIL 2.5 MG TAB PO SCH (09:00)
--- NOTE | 2018-01-24 10:40 | PDCARPN ---
Cardiology Progress Note Chief Complaint: Reports she feels wonderful. 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 She also has history of hyperlipidemia. Admitted yesterday for episodes ongoing chest pressure radiation into arms. Pain was not alleviated with nitroglycerin. Patient is known to have abnormal MPI study August of 2017, in which she had chosen to undergo medical management. Underwent coronary catheterization with anesthesia's assistance 01/23/[address] Piña. Noted LA appeared to be normal, LAD previous stent in proximal section was patent, with mild InStent stenosis. Mid LAD, appear to have dissection flap that was not flow limiting, circumflex with normal, non dominant , RCA appear normal. LV gram was done showing normal LV systolic function with no wall motion abnormalities, EF was estimated at 70%. IVUS of LAD demonstrated incomplete stent expansion in distal most day. Dissection flap be seen distal to the stent. Intra myocardial bridge was noted distal to dissection flap. PCI with 2.5 x 16 synergy MARCE was placed distal to previous stent, over dissection plaque, proximal to muscle bridge. Previous stent was expanded with NC balloon. 01/24/2018: Patient reports no chest pain or pressure. Reports"this the best I felt in months". Continues cardiac monitoring showing sinus rhythm no malignant arrhythmias or pauses. Post procedural electrocardiogram noted sinus rhythm, normal axis, no significant ST or T-wave abnormalities. Catheter insertion site, left groin site, with palm size ecchymoses running down in her thigh. Soft. No hematoma. No redness, swelling, or drainage. Normal CMS checks to left lower extremity. Plan: 1. CAD/chest pain: Patient reports no further chest pain since PCI of the LAD. Patient has been started on dual anti-platelet therapy of aspirin and clopidogrel. She is on secondary risk prevention with atorvastatin. Lipid panel drawn on 01/23 showing LDL at 45. Patient reports adverse reaction at home on Ranexa, will discontinue. 2. LAD muscle bridge: Noted muscle bridge mid LAD off angiogram yesterday. Patient will resume home dose of Bystolic. Have discontinued her lisinopril, would like her to start low-dose amlodipine at 2.5 mg p.o. Q.day. Have asked that she monitor blood pressure on a daily basis, keeping a log, and bring it back with her on follow-up visit. She has been advised to take time with positional changes and staying hydrated with starting medication. 3. Hyperlipidemia: LDL adequately suppressed on atorvastatin. No changes at this time. From Cardiology point of view, patient may be discharged home today. We have had a significant discussion about medication changes. It is been stressed to her the importance of dual anti-platelet therapy after MARCE implantation. 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 Oliveros within the next 7-10 days. 01/24/18 10:37 Subjective: Patient denies of any chest pain, pressure, shortness of breath, palpitations, lightheadedness, near-syncope or syncopal events. Reports no symptoms suggestive TIA or CVA. Reviewed/Discussed With: hospitalist (Dr Fletcher), other (Dr Schmidt) Objective: Vital Signs (8 Hrs) Temp Pulse Resp BP Pulse Ox 01/24/18 08:00 100/83 H 01/24/18 07:46 36.6 C 54 L 17 86/52 L 97 01/24/18 03:40 36.8 C 53 L 16 95/54 L 95 Intake/Output (24 Hrs) 01/23/18 01/24/18 01/25/18 05:59 05:59 05:59 Intake Total 3000 Output Total 2049 Balance 950 Intake: Oral (ml) 500 IV Intake (ml) 1500 IV Infused (ml) 1000 Output: Urine (ml) 2049 Catheter 2049 Other: Weight 58.4 kg Number of Voids Toilet 2 Result Diagrams: 01/24/18 04:12 01/24/18 04:12 Cardiac Labs: Cardiac Lab Results (72 Hrs) 01/23/18 13:32 Troponin I < 0.012 - Physical Exam Constitutional: WDWN, no apparent distress, other (Thin) Ears, Nose, Mouth, Throat: moist mucous membranes Cardiovascular: regular rate and rhythm, no rubs, pulses symmetric bilat, No jugular vein distention, No carotid bruit Peripheral Pulses: 2+: carotid (R), carotid (L), dorsalis-pedis (R), dorsalis- pedis (L) Respiratory: clear to auscultate bilat, no crackles, no wheezes Gastrointestinal: normoactive bowel sounds, no masses Skin: no rashes, warm, no edema, other (Left groin site, catheter insertion site with palm size ecchymoses at puncture site running down anterior thigh. Soft, nontender. No redness, swelling, drainage noted. No auscultated bruit.) Neurologic: AAOx3 Psychiatric: cooperative, interactive, following commands ICD10 Worksheet Patient Problems: Problems Problem Status Onset Chest pain Acute Chest pressure Acute Coronary artery disease Acute Diaphoresis Acute Status post insertion of drug-eluting stent into left anterior descending (LAD) artery Acute
[2018-01-24 11:57] VITALS: BP 91/55
--- NOTE | 2018-01-25 03:43 | GDS ---
DISCHARGE DIAGNOSES: 1. Unstable angina due to left anterior descending dissection, status post stent. 2. 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. 3. Left anterior descending muscle bridge. 4. Posttraumatic stress disorder due to ICU stay after last cardiac catheterization. 5. History of right lower extremity neuropathy and footdrop as a result of L4- L5 fusion. HISTORY: The patient is a 62-year-old female, who had an ST-elevation DC approximately [address] [facility]. She underwent an emergent cardiac catheterization and was found to have an LAD dissection, probable SCAD, and had an LAD stent placed. This was a very complicated procedure. She had a failed radial artery approach, and they had to go through her femoral artery which subsequently had a large bleed at the groin site. She had post catheterization delirium and required ICU stay due to adverse anesthesia reaction. Ever since this event she has had persistent chest pain that has waxed and waned. She was hospitalized here in August and had positive stress testing; however, she declined cardiac catheterization and attempts were made at continued medical management. She now re-presented to the hospital with worsening chest pain that was unrelieved with medical management. Cardiology was consulted, and she went semi-urgently back to cardiac catheterization which she finally agreed to. Dr. Nael Piña performed the procedure. The patient was found to have an LAD dissection distal to her previously placed stents with incomplete stent expansion. She had successful stenting of the distal LAD with a drug-eluting stent. She was found to have a muscle bridge. Immediately after the procedure, she had complete resolution of this chest pain that she had been suffering off and on for a year. This dissection flap that was never fully expanded has probably been causing her this persistent angina, and that is now relieved. She will be on aspirin plus Plavix for dual anti- platelet therapy. Cardiology also would like her to be on Norvasc for muscle relaxation effects of the muscle bridge. It is unclear whether she truly has coronary artery disease as the rest of her coronary arteries all look quite good , and suspicion is that her initial ST-elevation DC was due to SCAD. DISCHARGE MEDICATIONS: Please see computer record for full detailed list. New medications: 1. Aspirin 325 mg p.o. daily. 2. Plavix 75 mg p.o. daily. 3. Norvasc 2.5 mg p.o. daily. She will continue on atorvastatin and Bystolic as she was prior to admission. Discontinued medications include lisinopril, Effient, and Ranexa. ADDITIONAL DISCHARGE INSTRUCTIONS: 1. Follow up with Dr. Payton Oliveros. 2. Standard post catheterization groin precautions. Greater than 30 minutes' time was spent arranging this discharge. Patient was seen and examined by me on the day of discharge. /[id number]/MODL MTDD
== END 2018-01-24 12:35 | disposition home or self-care (01) ==
LOC: INTOOBSV 11:25 → F2W 12:40 → UNDODISOB 22:29
PROVIDERS: ADMIT Family Medicine; ATTEND Family Medicine
PROC: 4A023N7 Measurement of Cardiac Sampling and Pressure, Left Heart, Percutaneous Approach (ICD-10-PCS; principal; 2018-01-23)
PROC: B2151ZZ Fluoroscopy of Left Heart using Low Osmolar Contrast (ICD-10-PCS; principal; 2018-01-23)
PROC: B240ZZ3 Ultrasonography of Single Coronary Artery, Intravascular (ICD-10-PCS; principal; 2018-01-23)
PROC: 027034Z Dilation of Coronary Artery, One Artery with Drug-eluting Intraluminal Device, Percutaneous Approach (ICD-10-PCS; principal; 2018-01-23)
DX: I25.42 Coronary artery dissection (principal); I20.0 Unstable angina; T82.855A Stenosis of coronary artery stent, initial encounter; E86.9 Volume depletion, unspecified; I25.2 Old myocardial infarction; F43.10 Post-traumatic stress disorder, unspecified; G62.9 Polyneuropathy, unspecified; M21.371 Foot drop, right foot; E03.9 Hypothyroidism, unspecified; T88.59XD Other complications of anesthesia, subsequent encounter; E78.5 Hyperlipidemia, unspecified; I10 Essential (primary) hypertension; Z82.49 Family history of ischemic heart disease and other diseases of the circulatory system; Z98.1 Arthrodesis status
CPT/HCPCS: 71045; 92928; 92978; 93005; 93458; 96361; 96374; 96375; 99285; C1725; C1753; C1769; C1887; G0378; 84484-PO; C1874; C9600; J0461; J0583; J1644; J2060; J2250; J2405; J3010; Q9967

== ENCOUNTER → 2018-01-29 | Outpatient (CLI) | payer OTHER | LOC: FIMAGING 12:06 | PROVIDERS: ATTEND Internal Medicine Cardiovascular Disease | DX: I25.10 Atherosclerotic heart disease of native coronary artery without angina pectoris (principal); I72.9 Aneurysm of unspecified site ==

== ENCOUNTER → 2018-05-07 | Outpatient (CLI) | payer OTHER ==
[~2018-05-07] MED LIST: IOPAMIDOL (ISOVUE-300) 100 ML BTL ONE
== END ==
LOC: FIMAGING 15:28
PROVIDERS: ATTEND Internal Medicine Cardiovascular Disease
DX: K80.20 Calculus of gallbladder without cholecystitis without obstruction (principal); K76.9 Liver disease, unspecified; M50.30 Other cervical disc degeneration, unspecified cervical region; I25.10 Atherosclerotic heart disease of native coronary artery without angina pectoris
CPT/HCPCS: Q9967

== ENCOUNTER 2018-05-20 14:06 | Inpatient (IN) | payer OTHER ==
[2018-05-20] MEDS ORDERED: ASPIRIN 81 MG CHEWABLE TAB PO ONE (14:07)
[2018-05-20] MEDS ORDERED: ONDANSETRON 4 MG/2 ML VIAL IVP ONE (14:30)
[2018-05-20] MEDS ORDERED: NS 1,000 ML IV ONE ×2 (14:30→15:50)
[2018-05-20 14:31] LABS: PLATELET COUNT 282 10^3/uL (150-400)
--- NOTE | 2018-05-20 14:37 | EDPHY ---
H & P Time Seen by Provider: 05/20/18 14:07 HPI/ROS: HPI Gallbladder pain. Jaundice. 62-year-old female by private vehicle. This patient has a history of gallstones and biliary disease. She has been told in the past that she needs to have her gallbladder taken out. She has an appointment scheduled with general surgery, Dr. Ronel Richards, for this Friday regarding this matter. She had cardiac stents placed back in December and was told that she needed to wait 6 months before she could have surgery for her gallbladder. She is currently on Plavix. She presents the emergency department stating that Friday afternoon she had a gallbladder attack, described as sharp aching pain in the right upper quadrant which finally subsided early Friday. She reports that she then noted she was jaundiced. She was going to try to hold out for her appointment with Dr. Richards but the pain has persisted and today it has been worse. She also reports having nausea with vomiting, described as bilious vomiting this morning. ROS: Constitutional: No fever, no chills. No weakness. Eyes: No discharge. No changes in vision. ENT: No sore throat. No nasal congestion or rhinorrhea. Respiratory: No cough. No shortness of breath. Cardiac: No chest pain, no palpitations. Gastrointestinal: As above, no diarrhea. Genitourinary: No hematuria. No dysuria or increased frequency with urination. Musculoskeletal: No back pain. No neck pain. No myalgias or arthralgias. Skin: No rashes. Neurological: No headache. No focal weakness or altered sensation. Past medical history: Hypothyroid, coronary artery disease as above, neuropathy and right leg with drop foot, gallstones as above. Social history: Nonsmoker. She is here by herself. No alcohol. Physical Exam: General Appearance: Alert, she is not in distress. This patient is responding to questions appropriately and in full sentences. This patient appears well- hydrated and well-nourished. Eyes: Pupils equal and round no pallor or injection. Subtle scleral icterus noted. No lid edema, erythema or injection. ENT, Mouth: Mucous membranes are moist. The pharyngeal tissues are unremarkable. No edema or swelling. No asymmetry suggestive of abscess. No erythema or exudates. Respiratory: There are no retractions, lungs are clear to auscultation with good air movement bilaterally. Cardiovascular: Regular rate and rhythm. No murmur. Gastrointestinal: Abdomen is soft with moderate right upper quadrant tenderness on palpation and a positive Ward sign, no masses, bowel sounds normal. No focal tenderness at McBurney's point. Neurological: Motor sensory function is grossly intact. Cranial nerves are normal. Gait is normal. Skin: Warm and dry, no rashes. Mildly jaundiced. Musculoskeletal: Neck is supple and nontender. Extremities are symmetrical. All joints range without pain or impingement. Psychiatric: No agitation. No depression. Database: EKG: EKG time is 2:10 p.m.; EKG shows a narrow complex normal sinus rhythm with a ventricular rate of 75. Borderline T-wave abnormalities in the anterior leads with subtle ST depression noted in lead 2 as well as the for and V5. The SC, QRS, QT intervals are within normal limits. No evidence of right heart strain. Interpreted by me. Imaging: Right upper quadrant ultrasound: Significant for lots of small stones. Common bile duct is borderline dilated at 7 mm. No wall thickening. No cornelia cholecystic fluid. Results were discussed with staff radiologist Dr. Peña. Chest x-ray AP portable: Cardiac mediastinal silhouette is unremarkable. No acute cardiopulmonary disease process noted. Interpreted by me. Procedures: Emergency department course: Triage vital signs reviewed and are unremarkable. IV was placed. She was placed on a compliance monitor. She will be started on IV normal saline with 500 cc to 1 L to be given over the next hour. EKG was obtained and reviewed by myself. The patient initially be given 4 mg of IV Zofran for nausea. She declines pain medication currently. Right upper quadrant ultrasound to be obtained. Patient's presentation is consistent with cholecystitis/biliary disease. 3:45 p.m., the patient was started on a 2nd L of IV normal saline. Her pain is currently well controlled. I discussed the results of her diagnostic workup with her. I explained that I would contact Dr. Richards for admission and further management. Dr. Richards was paged. 3:55 p.m., I spoke with Dr. Richards of General surgery. She is familiar with this patient. The patient's presentation to the emergency department was discussed in detail with her. She will see the patient in the emergency department shortly. She asked that we admit the patient to the hospitalist service and that she and the hospitalist service will coordinate with Gastroenterology on further management. I subsequently spoke with Dr. Hooks of the hospitalist service. The case discussed in detail with her. She accepts this patient for admission. The patient's remaining emergency department course under my care has been uneventful. She was admitted in stable condition. Differential Diagnosis: The differential diagnosis on this patient includes but is not limited to cholecystitis, choledocholithiasis, pancreatitis, cholangitis, biliary colic. Acute coronary syndrome unlikely. This represents a partial list of diagnoses considered. These considerations are based on history, physical exam, past history, reassessment and diagnostic testing. Smoking Status: Never smoked Constitutional: Initial Vital Signs Temperature (C) 36.7 C 05/20/18 14:10 Heart Rate 74 05/20/18 14:10 Respiratory Rate 20 05/20/18 14:10 Blood Pressure 125/77 H 05/20/18 14:10 O2 Sat (%) 95 05/20/18 14:10 O2 Delivery Mode Room Air Allergies/Adverse Reactions: gabapentin Allergy (Verified 05/20/18 14:28) ticagrelor [From Brilinta] Allergy (Verified 05/20/18 14:28) Home Medications: Medication Instructions Recorded Levothyroxine [Synthroid 50 mcg 50 mcg PO DAILY06 01/14/17 (*)] Nebivolol HCl [Bystolic] 2.5 mg PO HS 08/19/17 Clopidogrel Bisulfate [Plavix (*)] 75 mg PO DAILY #30 tab 01/24/18 amLODIPine BESYLATE [Norvasc 2.5 2.5 mg PO DAILY #30 tab 01/24/18 mg (*)] Aspirin EC [Aspirin EC 81 mg (*)] 81 mg PO Q2D 05/20/18 Diclofenac Sodium 1% [Voltaren Gel 4 gm TP QID PRN 05/20/18 (*)] Herbals/Supplements -Info Only 1 ea PO DAILY 05/20/18 Nitroglycerin [Nitrostat 0.4 mg 0.4 mg SL Q5M PRN 05/20/18 (*)] Valacyclovir HCl [Valtrex] 1,000 mg PO TID PRN 05/20/18 Medical Decision Making - Data Points Laboratory Results: Laboratory Results 05/20/18 14:20 05/20/18 14:20 Medications Given: Hydrocodone Bitart/Acetaminophen ([place] 5/325) 1 - 2 tab PO Q4HRS PRN PRN Reason: Pain, Moderate Able to Take PO Stop: 05/30/18 17:36 Last Admin: 05/23/18 22:21 Dose: 2 tab Amlodipine Besylate (Norvasc) 2.5 mg PO DAILY JASS Stop: 11/17/18 08:59 Last Admin: 05/21/18 08:01 Dose: Not Given Cetirizine HCl (Zyrtec) 10 mg PO DAILY JASS Stop: 11/19/18 11:44 Last Admin: 05/24/18 10:13 Dose: 10 mg Clopidogrel Bisulfate (Plavix) 75 mg PO DAILY JASS Stop: 11/18/18 08:59 Last Admin: 05/24/18 10:13 Dose: 75 mg Diclofenac Sodium (Diclofenac Sodium 1% Gel) 4 gm TP QID PRN PRN Reason: Pain, Breakthrough Stop: 11/16/18 17:38 Last Admin: 05/23/18 22:39 Dose: 4 gr Diphenhydramine HCl (Benadryl) 25 mg PO Q8H PRN PRN Reason: Sleep/Insomnia Stop: 11/20/18 15:10 Last Admin: 05/24/18 16:19 Dose: 25 mg Hydromorphone HCl (Dilaudid) 0.4 - 1 mg IVP Q4HRS PRN PRN Reason: Pain, Severe Unable to Take PO Stop: 05/30/18 17:36 Last Admin: 05/24/18 20:52 Dose: 1 mg Sodium Chloride (Ns) 1,000 mls @ 75 mls/hr IV CONT [facility] Stop: 11/16/18 17:44 Last Admin: 05/24/18 23:44 Dose: 1,000 mls Levothyroxine Sodium (Synthroid) 50 mcg PO DAILY06 [facility] Stop: 11/17/18 05:59 Last Admin: 05/25/18 05:56 Dose: 50 mcg Lorazepam (Ativan Injection) 0.5 - 1 mg IVP Q6H PRN PRN Reason: Anxiety, Unable to Take PO Stop: 11/16/18 17:36 Last Admin: 05/24/18 20:50 Dose: 0.5 mg Magnesium Hydroxide (Milk Of Magnesia) 30 ml PO DAILY PRN; Protocol PRN Reason: Constipation Stop: 11/19/18 11:41 Last Admin: 05/24/18 20:49 Dose: 30 ml Nebivolol (Bystolic) 2.5 mg PO HS JASS Stop: 11/16/18 20:59 Last Admin: 05/20/18 20:18 Dose: 2.5 mg Ondansetron HCl (Zofran) 4 mg IVP Q4HRS PRN PRN Reason: Nausea/Vomiting, Can't Take PO Stop: 11/16/18 17:36 Last Admin: 05/23/18 17:01 Dose: 4 mg Oxycodone HCl (Oxycodone Ir) 5 - 10 mg PO Q3HRS PRN PRN Reason: Pain, Severe Able to Take PO Stop: 05/30/18 17:36 Last Admin: 05/24/18 23:44 Dose: 10 mg Polyethylene Glycol (Miralax) 17 gm PO DAILY PRN; Protocol PRN Reason: Constipation, patient prefers Stop: 11/19/18 11:41 Last Admin: 05/24/18 05:44 Dose: 17 gm Promethazine HCl (Phenergan) 6.25 - 12.5 mg IVP Q6HRS PRN PRN Reason: Nausea/Vomiting, Use 2nd Stop: 11/16/18 17:36 Last Admin: 05/24/18 23:45 Dose: 6.25 mg Senna/Docusate Sodium (Senokot-S) 1 tab PO BID PRN; Protocol PRN Reason: Constipation Stop: 11/19/18 20:59 Last Admin: 05/24/18 20:49 Dose: 1 tab Tramadol HCl (Ultram) 50 mg PO Q6HRS PRN PRN Reason: Pain, Moderate Able to Take PO Stop: 11/17/18 21:24 Last Admin: 05/24/18 18:51 Dose: 50 mg Discontinued Medications Acetaminophen (Tylenol) 1,000 mg PO Q8 JASS Stop: 11/18/18 13:59 Last Admin: 05/22/18 15:44 Dose: Not Given Aspirin (Aspirin) 324 mg PO EDNOW ONE Stop: 05/20/18 14:08 Last Admin: 05/20/18 14:21 Dose: Not Given Bupivacaine HCl (Sensorcaine 0.5% Vial) Confirm Administered Dose 30 ml .ROUTE .STK-MED ONE Stop: 05/21/18 13:39 Last Admin: 05/21/18 16:02 Dose: 20 ml Fentanyl (Sublimaze) 25 - 100 mcg IVP Q5M PRN PRN Reason: PACU, IMMEDIATE Pain control Stop: 05/21/18 18:41 Last Admin: 05/21/18 19:00 Dose: 50 mcg Hydromorphone HCl (Dilaudid) 0.1 - 0.4 mg IVP Q10M PRN PRN Reason: PACU, PAIN Stop: 05/21/18 18:41 Last Admin: 05/21/18 20:32 Dose: 0.2 mg Sodium Chloride (Ns) 1,000 mls @ 0 mls/hr IV EDNOW ONE; Wide Open PRN Reason: Protocol Stop: 05/20/18 14:31 Last Admin: 05/20/18 14:46 Dose: 1,000 mls Sodium Chloride (Ns) 1,000 mls @ 0 mls/hr IV ONCE ONE; Wide Open PRN Reason: Protocol Stop: 05/20/18 15:51 Last Admin: 05/20/18 15:51 Dose: 1,000 mls Ertapenem 1 gm/ Sodium (Chloride) 100 mls @ 200 mls/hr IV DAILY JASS PRN Reason: Protocol Stop: 06/19/18 17:44 Last Admin: 05/21/18 08:02 Dose: 100 mls Iothalamate Meglumine (Conray) Confirm Administered Dose 50 ml IV .STK-MED ONE Stop: 05/21/18 13:39 Last Admin: 05/21/18 16:52 Dose: 50 ml Ketorolac Tromethamine (Toradol) 15 mg IVP Q6H PRN PRN Reason: Pain, Moderate Stop: 05/26/18 21:59 Last Admin: 05/22/18 05:25 Dose: 15 mg Lorazepam (Ativan Injection) 0.5 - 1 mg IVP Q8HRS PRN PRN Reason: Anxiety, Unable to Take PO Stop: 11/16/18 17:36 Last Admin: 05/22/18 09:51 Dose: 1 mg Ondansetron HCl (Zofran) 4 mg IVP EDNOW ONE Stop: 05/20/18 14:31 Last Admin: 05/20/18 14:46 Dose: 4 mg Point of Care Test Results: Chemistry 05/20/18 14:22 POC Troponin I 0.01 ng/mL ng/mL (0.00-0.08) Departure - Departure Disposition: [facility] Inpatient Acute Clinical Impression: Choledocholithiasis with obstruction, Pancreatitis, Transaminitis, Hyperbilirubinemia
[2018-05-20 14:39] LABS: PROTIME(PATIENT) 12.8 SEC (12.0-15.0)
[2018-05-20] MEDS ORDERED: ACETAMINOPHEN 325 MG TAB PO PRN (17:37)
[2018-05-20] MEDS ORDERED: HYDROmorphONE/DILAUDID 1 MG/ML INJ IVP PRN (17:37)
[2018-05-20] MEDS ORDERED: DICLOFENAC SODIUM 1% 100 GM GEL TP PRN (17:39)
[2018-05-20] MEDS ORDERED: valACYclovir 500 MG TAB PO PRN (18:15)
[2018-05-20] MEDS: NS 1,000 ML IV SCH (18:20)
[2018-05-20] MEDS: ERTAPENEM 1 GM in NS 100 ML IV SCH (18:24)
--- NOTE | 2018-05-20 19:28 | PDGENHP ---
History and Physical - Chief Complaint abdominal pain, yellow skin - History of Present Illness 62 yo F with PMH of CAD with STEMI in 11/2016 thought to be secondary to spontaneous coronary artery dissection for which she underwent LAD stent with a complicated post op course including bleeding and delirium and more recent unstable angina with recurrent dissection distal to the previously placed LAD stent and incomplete stent expansion as well as mild in-stent stenosis, with another stent placed in the LAD and confirmation that the dissection flap was now closed in 01/2018. Since then she had resolution of her angina, but unfortunately has been having issues with cholelithiasis and biliary colic. She has been told that she needs her GB out but the plan was ideally to wait as long as possible given her recent stent and that she is currently on both aspirin and plavix. Since Friday night, Meredith has had issues with nausea and vomiting and abdominal pain consistent with her prior 'gallbladder attacks', it began to subside on Friday some and her initial plan was to wait for her appointment with Dr. Richards on Friday, but over the next couple of days it came back and today while she was at work and the pain became so severe she walked over to [facility] to ask advice from her administrative services manager who recommended she come here. In the ER she was noted to be jaundiced with elevated LFTs, a lipase > 20,000 and an US showing cholelithiasis, dilated CBD and mildly thickened GB wall. History Information - Allergies/Home Medication List Allergies/Adverse Reactions: gabapentin Allergy (Verified 05/20/18 14:28) ticagrelor [From Brilinta] Allergy (Verified 05/20/18 14:28) Home Medications: Levothyroxine [Synthroid 50 mcg (*)] 50 mcg PO DAILY06 01/14/17 [Last Taken 11/01] Nebivolol HCl [Bystolic] 2.5 mg PO HS 08/19/17 [Last Taken 01/22/18] Aspirin EC [Aspirin EC 81 mg (*)] 81 mg PO Q2D 05/20/18 [Last Taken 05/18/18] Diclofenac Sodium 1% [Voltaren Gel (*)] 4 gm TP QID PRN 05/20/18 [Last Taken Unknown] Herbals/Supplements -Info Only 1 ea PO DAILY 05/20/18 [Last Taken Unknown] Nitroglycerin [Nitrostat 0.4 mg (*)] 0.4 mg SL Q5M PRN 05/20/18 [Last Taken Unknown] Valacyclovir HCl [Valtrex] 1,000 mg PO TID PRN 05/20/18 [Last Taken Unknown] I have personally reviewed and updated: family history, medical history, social history, surgical history Past Medical History: See HPI list - Past Medical History coronary artery disease, hyperlipidemia, myocardial infarction Additional medical history: hypothyroid. 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, daughter, at bedside with patient Review of Systems Review of Systems: ROS: 10pt was reviewed & negative except for what was stated in HPI & below Physical Exam Physical Exam: Temp Pulse Resp BP Pulse Ox 36.9 C 58 L 16 121/70 H 95 05/20/18 18:23 05/20/18 18:23 05/20/18 18:23 05/20/18 18:23 05/20/18 18:23 Constitutional: appears nourished, uncomfortable Eyes: EOMI, icteric sclera Ears, Nose, Mouth, Throat: moist mucous membranes, hearing normal Cardiovascular: regular rate and rhythym, no murmur, rub, or gallop, No edema Respiratory: no respiratory distress, no rales or rhonchi Gastrointestinal: tenderness, No normoactive bowel sounds, No guarding, No rebound Genitourinary: no bladder tenderness Skin: warm, normal color Musculoskeletal: full muscle strength Neurologic: AAOx3 Psychiatric: interacting appropriately, not anxious, not encephalopathic Lab Data & Imaging Review 05/20/18 14:20 05/20/18 14:20 WBC 9.06 10^3/uL (3.80-9.50) 05/20/18 14:20 RBC 4.55 10^6/uL (4.18-5.33) 05/20/18 14:20 Hgb 13.2 g/dL (12.6-16.3) 05/20/18 14:20 Hct 39.4 % (38.0-47.0) 05/20/18 14:20 MCV 86.6 fL (81.5-99.8) 05/20/18 14:20 MCH 29.0 pg (27.9-34.1) 05/20/18 14:20 MCHC 33.5 g/dL (32.4-36.7) 05/20/18 14:20 RDW 14.6 % (11.5-15.2) 05/20/18 14:20 Plt Count 282 10^3/uL (150-400) 05/20/18 14:20 MPV 8.7 fL (8.7-11.7) 05/20/18 14:20 Neut % (Auto) 75.1 % (39.3-74.2) H 05/20/18 14:20 Lymph % (Auto) 11.0 % (15.0-45.0) L 05/20/18 14:20 [place] % (Auto) 12.5 % (4.5-13.0) 05/20/18 14:20 Eos % (Auto) 0.3 % (0.6-7.6) L 05/20/18 14:20 Baso % (Auto) 0.7 % (0.3-1.7) 05/20/18 14:20 Nucleat RBC Rel Count 0.0 % (0.0-0.2) 05/20/18 14:20 Absolute Neuts (auto) 6.80 10^3/uL (1.70-6.50) H 05/20/18 14:20 Absolute Lymphs (auto) 1.00 10^3/uL (1.00-3.00) 05/20/18 14:20 Absolute Monos (auto) 1.13 10^3/uL (0.30-0.80) H 05/20/18 14:20 Absolute Eos (auto) 0.03 10^3/uL (0.03-0.40) 05/20/18 14:20 Absolute Basos (auto) 0.06 10^3/uL (0.02-0.10) 05/20/18 14:20 Absolute Nucleated RBC 0.00 10^3/uL (0-0.01) 05/20/18 14:20 Immature Gran % 0.4 % (0.0-1.1) 05/20/18 14:20 Immature Gran # 0.04 10^3/uL (0.00-0.10) 05/20/18 14:20 PT 12.8 SEC (12.0-15.0) 05/20/18 14:20 INR 1.00 (0.83-1.16) 05/20/18 14:20 APTT 26.0 SEC (23.0-38.0) 05/20/18 14:20 Sodium 135 mEq/L (135-145) 05/20/18 14:20 Potassium 3.6 mEq/L (3.5-5.2) 05/20/18 14:20 Chloride 105 mEq/L (97-110) 05/20/18 14:20 Carbon Dioxide 18 mEq/l (22-31) L 05/20/18 14:20 Anion Gap 12 mEq/L (6-14) 05/20/18 14:20 BUN 9 mg/dL (7-23) 05/20/18 14:20 Creatinine 0.7 mg/dL (0.6-1.0) 05/20/18 14:20 Estimated GFR > 60 05/20/18 14:20 Glucose 140 mg/dL (70-100) H 05/20/18 14:20 Calcium 9.1 mg/dL (8.5-10.4) 05/20/18 14:20 Total Bilirubin 6.5 mg/dL (0.1-1.4) H 05/20/18 14:20 Conjugated Bilirubin 4.8 mg/dL (0.0-0.5) H 05/20/18 14:20 Unconjugated Bilirubin 1.7 mg/dL (0.0-1.1) H 05/20/18 14:20 AST 198 IU/L (14-46) H 05/20/18 14:20 ALT 335 IU/L (9-52) H 05/20/18 14:20 Alkaline Phosphatase 386 IU/L (38-126) H 05/20/18 14:20 POC Troponin I 0.01 ng/mL (0.00-0.08) 05/20/18 14:22 Total Protein 7.3 g/dL (6.3-8.2) 05/20/18 14:20 Albumin 4.1 g/dL (3.5-5.0) 05/20/18 14:20 Lipase > 09967 IU/L (23-300) H 05/20/18 14:20 Visualized and Interpreted Chest x-ray results: Yes Chest X-Ray results: other (atelectasis minimal) Visualized and Interpreted imaging results: Yes Interpretation: abd US: multiple stones in GB, dilated CBD at 7mm Visualized and Interpreted EKG results: Yes EKG Interpretation: Positive for: normal sinsus rhythm, T waves inversion Assessment & Plan Assessment: Choledocholithiasis with obstruction (Acute) Pancreatitis (Acute) 62 yo F with PMH of CAD s/p stent to LAD in January as well as biliary colic and cholelithiasis presenting with jaundice and presumed choledocholithiasis and acute pancreatitis # acute pancreatitis: with lipase > 20 k and relatively severe abdominal pain, pain improved with IV dilaudid and will continue with that overnight, NPO, IVF, antiemetics as needed. 2 next # choledocholithiasis/? cholangitis: patient with jaundice and cholestatic elevation in LFTs with evidence of multiple gallstones and dilated CBD. Surgery has been consulted and plan at this time is to monitor LFTs overnight, if they are trending down patient will likely go to OR for cholecystectomy in am, if they are stable or trending up will need to consult GI for consideration of ERCP or MRCP prior to maria del rosario. Complication is that patient with recent stent as next and want tho minimize time off DAPT. Given ertapenem and will continue for now as patient notes possible fever at home. # CAD: with recent LAD stent in January, on DAPT as an OP which we are holding for now as above, discussed with patients administrative services manager Dr. Oliveros who agrees with plan to proceed to surgery if necessary and hold asa/plavix for the shortest duration felt safe by surgery. Dr. Richards and patient aware. # HTN: BP has been controlled since arrival, will continue her home meds for now , hold if BP decreasing # neuropathy: chronic RLE neuropathy with foot drop complicating a lumbar surgery in the past # IP status Patient new to my care. Old records reviewed and summarized as above. Care plan reviewed with Dr. Richards and Dr. Oliveros as above, further hx obtained from patients daughter present at bedside.
[2018-05-20] MEDS: HYDROmorphONE/DILAUDID 1 MG/ML INJ IVP PRN (20:16)
[2018-05-20] MEDS ORDERED: NEBIVOLOL HCL 5 MG TAB PO SCH (21:00)
--- NOTE | 2018-05-20 21:06 | CPEKG ---
Test Reason : OPEN Blood Pressure : / mmHG Vent. Rate : 075 BPM Atrial Rate : 075 BPM P-R Int : 147 ms QRS Dur : 078 ms QT Int : 398 ms P-R-T Axes : 046 027 000 degrees QTc Int : 445 ms Sinus rhythm Borderline T abnormalities, anterior leads Confirmed by Juan Alberto Baeza ([id number]) on 05/20/2018 9:05:25 PM Referred By: Juan Alberto Baeza Confirmed By:Juan Alberto Baeza
[2018-05-20] MEDS: LORazepam 2 MG/ML INJ IVP PRN (21:45)
[2018-05-21] MEDS: HYDROmorphONE/DILAUDID 1 MG/ML INJ IVP PRN (01:49)
[2018-05-21] MEDS: NS 1,000 ML IV SCH ×3 (01:50→13:38)
[2018-05-21] MEDS: LEVOTHYROXINE 50 MCG TAB PO SCH (04:55)
[2018-05-21 05:45] LABS: PLATELET COUNT 144 10^3/uL (150-400)
--- NOTE | 2018-05-21 07:16 | SOAPPROG ---
SOFIE Progress Note Assessment/Plan: Assessment: 62 yo with CAD and heart stent 12/2017 admitted for gallstone pancreatitis/ choledocolithiasis Lipase pending today Direct bili and LFTs down. Will proceed with Lap maria del rosario IOC to minimize time off Plavix. ERCP only if retained stone Scheduled for 4 pm today provided improvement in lipase as well. S: feeling much improved. Abdominal pain better, slept well O: Lying in bed, appears less jaundiced CTAB Regular rate Abdomen soft and minimal tenderness Plan: 05/21/18 07:14 05/21/18 10:33 Objective: Vital Signs Temp Pulse Resp BP Pulse Ox 36.6 C 61 14 105/59 L 96 05/21/18 04:56 05/21/18 04:56 05/21/18 04:56 05/21/18 04:56 05/21/18 04:56 Laboratory Results 05/21/18 04:40 05/21/18 04:40 05/20/18 05/21/18 05/22/18 05:59 05:59 05:59 Intake Total 3588 Balance 3588 PT 12.8 SEC (12.0-15.0) 05/20/18 14:20 INR 1.00 (0.83-1.16) 05/20/18 14:20 ICD10 Worksheet Patient Problems: Problems Problem Status Onset Choledocholithiasis with obstruction Acute Pancreatitis Acute Chest pain Acute Chest pressure Acute Coronary artery disease Acute Diaphoresis Acute Status post insertion of drug-eluting stent into left anterior descending (LAD) artery Acute
--- NOTE | 2018-05-21 07:20 | GCON ---
[f rep st] CONSULTATION DATE OF CONSULTATION: 05/20/2018 CHIEF COMPLAINT: Choledocholithiasis. HISTORY OF PRESENT ILLNESS: Meredith is a 62-year-old woman who has had on and off episodes of biliar y colic. She had a cardiac stent placed in December and was trying to wait at least 6 months to a yea r before pursuing cholecystectomy. However, on Friday, she started having abdominal pain and had num erous episodes of bilious emesis. She became jaundiced, and she felt slightly better Friday morning. She did take Friday off work. She was trying to minimize her diet, but today, her pain became so b ad that she needed to report to the Emergency Room. She was found to have, on ultrasound, cholelithi asis with multiple calculi. Her laboratory work was notable for a conjugated bilirubin of 4.8. Her AST and ALT and alkaline phosphatase are up, and her lipase is greater than 20,000. Her troponin is negative. Her white count is 9. PAST MEDICAL HISTORY: Hypothyroidism, coronary artery disease, neuropathy. PAST SURGICAL HISTORY: Laparoscopy for an intraabdominal adhesion, cardiac stent. SOCIAL HISTORY: She sees one of our porter sample case at [facility]. She does not use tobacco pr oducts. REVIEW OF SYSTEMS: Significant for malaise, jaundice, abdominal pain, anorexia, decreased p.o. intak e, emesis. PHYSICAL EXAMINATION: VITAL SIGNS: 36.8, 63, 128/67, 17, 97% on room air. GENERAL: Pleasant woman lying in bed. Daughter at bedside. She is well nourished and well groomed. HEENT: Normocephalic. No gross hearing deficits. She does have scleral icterus. Her pupils are equal and round. Mucous membranes dry. LUNGS: No increased work of breathing. CARDIAC: Regular rate. ABDOMEN: She is s oft, but she is tender, especially in the right upper quadrant. SKIN: Slight jaundice, otherwise wa rm and dry. MUSCULOSKELETAL: Normal nails. NEURO: Neuropathy. PSYCH: Mood and affect normal. LABS: Results reviewed per HPI. IMPRESSION/PLAN: Meredith Adams is a 62-year-old woman with coronary artery disease status post stent ing, in December 2017, with gallstone pancreatitis and choledocholithiasis. Although it is ideal to w ait at least 6 months to a year after having a drug-eluting stent, we may need to operate sooner. We discussed operating on Plavix versus minimizing the time off Plavix. We discussed that we will repe at her labs in the morning. If her bilirubin is trending down, then, we may opt to forego ERCP or co nsider MRCP. If the bilirubin is stable or going up, then, I think it would be prudent to proceed wi ERCP. We would also like to see her pancreatitis improving. She had her questions answered to he r satisfaction. Continue NPO, continue intravenous fluids, continue pain management. I will follow along. I have canceled her outpatient appointment to see me on Friday. /[id number]/MODL
[2018-05-21] MEDS: ERTAPENEM 1 GM in NS 100 ML IV SCH (08:02)
--- NOTE | 2018-05-21 09:04 | HOSPPROG ---
Hospitalist Progress Note Assessment/Plan: 62 yo F with PMH of CAD s/p stent to LAD in January 2018 as well as biliary colic and cholelithiasis presenting with jaundice and presumed choledocholithiasis and acute pancreatitis #Gallstone pancreatitis: Lipase significantly better - NPO, IVF, anti-emetics, pain control #Choledocholithiasis: LFTs improving - D/w Dr Richards, plan for lap cholecystectomy this afternoon - Continue ertapenem until surgery (? fever at home) - Hold on ERCP unless retained stone #CAD: LAD stent 11/2016 complicated by spontaneous dissection and repeat stent . - Holding aspirin and plavix, resume as soon as possible after surgery - Previous provider d/w Dr Oliveros #HTN: Actually low BP this AM - Holding amlodipine and beta sonia #Neuropathy: Chronic RLE VTE ppx: SCDs Code: full Dispo: Remain inpatient Subjective: Pain much improved. No nausea. Anxious about surgery and being off plavix. Objective: Vital Signs Temp Pulse Resp BP Pulse Ox 36.7 C 50 L 16 91/48 L 96 05/21/18 07:53 05/21/18 07:53 05/21/18 07:53 05/21/18 07:58 05/21/18 07:53 Laboratory Results 05/21/18 04:40 05/21/18 04:40 05/20/18 05/21/18 05/22/18 05:59 05:59 05:59 Intake Total 3588 Balance 3588 PT 12.8 SEC (12.0-15.0) 05/20/18 14:20 INR 1.00 (0.83-1.16) 05/20/18 14:20 - Physical Exam Constitutional: no apparent distress, appears nourished, not in pain Eyes: PERRL, anicteric sclera, EOMI Ears, Nose, Mouth, Throat: moist mucous membranes, hearing normal, ears appear normal, no oral mucosal ulcers Cardiovascular: regular rate and rhythym, no murmur, rub, or gallop Respiratory: no respiratory distress, no rales or rhonchi, clear to auscultation Gastrointestinal: soft, non-tender abdomen, no palpable masses, other ( decreased bowel sounds) Genitourinary: no bladder fullness, no bladder tenderness, no renal bruits Skin: no rashes or abrasions, no fluctuance, no induration Musculoskeletal: full muscle strength, no muscle tenderness, normal joint ROM Neurologic: AAOx3, sensation intact bilaterally Psychiatric: interacting appropriately, not anxious, not encephalopathic, thought process linear ICD10 Worksheet Patient Problems: Problems Problem Status Onset Choledocholithiasis with obstruction Acute Pancreatitis Acute Chest pain Acute Chest pressure Acute Coronary artery disease Acute Diaphoresis Acute Status post insertion of drug-eluting stent into left anterior descending (LAD) artery Acute
[2018-05-21] MEDS: ONDANSETRON 4 MG/2 ML VIAL IVP PRN ×2 (11:14→19:15)
--- NOTE | 2018-05-21 11:37 | PDMN ---
Medical Necessity Medical necessity: Pt meets IP criteria as of 05/20/2018 per and MCG M-250 ( Pancreatitis) 2 days; Pt presents with acute pancreatitis with severe abdominal pain, jaundice, and lipase >20,000 as well as choledocholithiasis; requiring IVF , anti-emetics, pain control, serial labs, and surgical consult. Comorbid HTN, neuropathy, and CAD.
[2018-05-21] MEDS ORDERED: BUPIVACAINE 0.5% 30 ML SDV ONE (13:38)
[2018-05-21] MEDS ORDERED: IOTHALAMATE MEG (CONRAY) 50 ML VIAL IV ONE (13:38)
--- NOTE | 2018-05-21 14:49 | ASMTCMCOM ---
CM Note CM Note Notes: Pt is a 62 y/o female admitted for nausea, vomiting, and jaundice. Pt is going to surgery w/ Dr. Richards to remove gallbladder. Pt will most likely d/c independent without any needs. CM available for changes. Plan: Independent Date Signed: 05/21/2018 02:48 PM Electronically Signed By:KRYSTEN Mccullough
--- NOTE | 2018-05-21 15:34 | PDANEPAE ---
ANE History of Present Illness choledocolitiasis, pancreatitis ANE Past Medical History - Cardiovascular History Hx Hypertension: Yes Hx Arrhythmias: No Hx Chest Pain: Yes Hx Coronary Artery / Peripheral Vascular Disease: Yes Hx CHF / Valvular Disease: No Hx Palpitations: No Cardiovascular History Comment: LAD stent 2016, 2018 - Pulmonary History Hx COPD: No Hx Asthma/Reactive Airway Disease: No Hx Recent Upper Respiratory Infection: No Hx Oxygen in Use at Home: No Hx Sleep Apnea: No Sleep Apnea Screening Result - Last Documented: Positive - Endocrine History Hx Diabetes: No Hypothyroid: Yes Hyperthyroid: No Obesity: no - Liver History Hepatic History Comment: pancreatitis current. jaundice - Neurological & Psychiatric Hx Hx Neurological and Psychiatric Disorders: No - Cancer History Hx Cancer: No - Chronic Pain History Chronic Pain: Yes (neuropathy R leg) ANE Review of Systems Review of systems is: negative Review of Systems: ANE Patient History - Allergies Allergies/Adverse Reactions: gabapentin Allergy (Verified 05/20/18 14:28) ticagrelor [From Brilinta] Allergy (Verified 05/20/18 14:28) - Home Medications Home medications: home medication list seen and reviewed Home Medications: Levothyroxine [Synthroid 50 mcg (*)] 50 mcg PO DAILY06 01/14/17 [Last Taken 11/01] Nebivolol HCl [Bystolic] 2.5 mg PO HS 08/19/17 [Last Taken 01/22/18] Aspirin EC [Aspirin EC 81 mg (*)] 81 mg PO Q2D 05/20/18 [Last Taken 05/18/18] Diclofenac Sodium 1% [Voltaren Gel (*)] 4 gm TP QID PRN 05/20/18 [Last Taken Unknown] Herbals/Supplements -Info Only 1 ea PO DAILY 05/20/18 [Last Taken Unknown] Nitroglycerin [Nitrostat 0.4 mg (*)] 0.4 mg SL Q5M PRN 05/20/18 [Last Taken Unknown] Valacyclovir HCl [Valtrex] 1,000 mg PO TID PRN 05/20/18 [Last Taken Unknown] - NPO status NPO Since - Liquids (Date): 05/21/18 NPO Since - Liquids (Time): 09:30 NPO Since - Solids (Date): 05/20/18 NPO Since - Solids (Time): 07:00 - Smoking Hx Smoking Status: Never smoked - Alcohol Use Alcohol Use: Rarely ANE Labs/Vital Signs - Labs Result Diagrams: 05/21/18 04:40 05/21/18 04:40 - Vital Signs Blood Pressure: 109/53 Heart Rate: 51 Respiratory Rate: 16 O2 Sat (%): 98 Height: 165.1 cm Weight: 60.328 kg ANE Physical Exam - Airway Neck exam: FROM Mallampati Score: Class 2 Mouth exam: normal dental/mouth exam - Pulmonary Pulmonary: no respiratory distress, clear to auscultation - Cardiovascular Cardiovascular: regular rate and rhythym, no murmur, rub, or gallop - ASA Status ASA Status: III ANE Anesthesia Plan Anesthesia Plan: general endotracheal anesthesia
[2018-05-21] MEDS ORDERED: fentaNYL 250 MCG/5 ML INJ ONE (15:45)
[2018-05-21] MEDS ORDERED: PROPOFOL/EMULSION 500 MG/50 ML BOTTLE IV ONE (15:45)
[2018-05-21] MEDS ORDERED: LIDOCAINE 0.5% 50 ML SDV ONE (15:46)
[2018-05-21] MEDS ORDERED: ROCURONIUM 50 MG/5 ML VIAL ONE (15:46)
[2018-05-21] MEDS ORDERED: ONDANSETRON 4 MG/2 ML VIAL ONE (15:47)
[2018-05-21] MEDS ORDERED: DEXAMETHASONE 4 MG/ML VIAL ONE (15:47)
--- NOTE | 2018-05-21 16:35 | CPEKG ---
Test Reason : OPEN Blood Pressure : / mmHG Vent. Rate : 047 BPM Atrial Rate : 047 BPM P-R Int : 153 ms QRS Dur : 080 ms QT Int : 489 ms P-R-T Axes : 030 052 070 degrees QTc Int : 433 ms Sinus bradycardia Low voltage, precordial leads Confirmed by Nael Piña ([id number]) on 05/21/2018 4:35:37 PM Referred By: Magdalena Humphreys Confirmed By:Nael Piña
[2018-05-21] MEDS ORDERED: PROMETHAZINE HCL 25 MG/ML INJ IVP PRN (17:41)
[2018-05-21] MEDS ORDERED: ONDANSETRON 4 MG/2 ML VIAL IVP PRN (17:41)
[2018-05-21] MEDS ORDERED: NALOXONE HCL 0.4 MG/ML INJ IVP PRN (17:41)
--- NOTE | 2018-05-21 17:41 | POSTANESTH ---
Post Anesthetic Evaluation Cardiovascular Status: Normal, Stable Respiratory Status: Normal, Stable Level of Consciousness/Mental Status: Can Participate in Eval Pain Control: Adequate, Prn Tx Ordered Nausea/Vomiting Control: Adequate, Prn Tx Ordered Complications Possibly Related to Anesthesia: None Noted
[2018-05-21] MEDS ORDERED: GLYCOPYRROLATE 0.2 MG/1 ML VIAL ONE ×2 (17:52)
[2018-05-21] MEDS ORDERED: NEOSTIGMINE METHYLSULFATE 5 MG/5 ML SYR ONE (17:52)
--- NOTE | 2018-05-21 18:06 | POSTOPPROG ---
Post Op Note Date of Operation: 05/21/18 Surgeon: Ronel Richards Anesthesia: GET(General Endotracheal) Pre-op Diagnosis: gallstone pancreatitis, choledocolithiasis Post-op Diagnosis: same Indication: 62 yo with gs panc and choledoco Procedure: lap maria del rosario attempt ioc Findings: inflamed duct Inf/Abcess present in the surg proc area at time of surgery?: No EBL: 50-100 Specimen(s): gb
[2018-05-21] MEDS: fentaNYL 100 MCG/2 ML INJ IVP PRN ×2 (18:22→19:00)
[2018-05-21] MEDS ORDERED: HYDROmorphONE/DILAUDID 2 MG/ML INJ ONE (19:15)
[2018-05-21] MEDS: HYDROmorphONE/DILAUDID 2 MG/ML INJ IVP PRN ×3 (19:16→20:32)
[2018-05-21] MEDS: PROMETHAZINE HCL 25 MG/ML INJ IVP PRN (21:22)
[2018-05-21] MEDS ORDERED: KETOROLAC 15 MG/1 ML SDV IVP PRN (22:00)
[2018-05-22] MEDS: HYDROmorphONE/DILAUDID 1 MG/ML INJ IVP PRN ×5 (00:48→19:17)
[2018-05-22] MEDS: LEVOTHYROXINE 50 MCG TAB PO SCH (05:25)
--- NOTE | 2018-05-22 08:04 | SOAPPROG ---
SOAP Progress Note Assessment/Plan: Assessment/Plan: 62yo F POD#1 s/p lap maria del rosario. IOC unable to visualize CBD Labs improved Resume plavix Clear liquid diet, ADAT Passing flatus Dispo: likely inpatient 2-3 more days. Seen with Dr. Richards S: pain overnight requiring Rx pain meds. No nausea. Passing flatus. O: laying in bed, comfortable, NAD No increased WOB +BS, soft, distended. Incisions CDI Objective: Vital Signs Temp Pulse Resp BP Pulse Ox 36.6 C 45 L 16 84/45 L 95 05/22/18 07:21 05/22/18 07:21 05/22/18 07:21 05/22/18 07:21 05/22/18 07:21 Laboratory Results 05/22/18 04:52 05/22/18 04:52 05/21/18 05/22/18 05/23/18 05:59 05:59 05:59 Intake Total 3588 1240 1314 Output Total 450 Balance 3588 790 1314 PT 12.8 SEC (12.0-15.0) 05/20/18 14:20 INR 1.00 (0.83-1.16) 05/20/18 14:20 ICD10 Worksheet Patient Problems: Problems Problem Status Onset Choledocholithiasis with obstruction Acute Pancreatitis Acute Chest pain Acute Chest pressure Acute Coronary artery disease Acute Diaphoresis Acute Status post insertion of drug-eluting stent into left anterior descending (LAD) artery Acute
--- NOTE | 2018-05-22 09:02 | HOSPPROG ---
Hospitalist Progress Note Assessment/Plan: 62 yo F with PMH of CAD s/p stent to LAD in January 2018 as well as biliary colic and cholelithiasis presenting with jaundice and presumed choledocholithiasis and acute pancreatitis #Gallstone pancreatitis: Lipase significantly better - s/p lap maria del rosario yesterday - monitor abdominal exam closely, currently has +BS and is distended but soft - clears, continue IVF, anti-emetics, pain control #Choledocholithiasis: LFTs improved - CBD not visualized in surgery yesterday - Will follow LFTs, if heading in wrong direction, may need ERCP - Stopping ertapenem #CAD: LAD stent 11/2016 complicated by spontaneous dissection and repeat stent . - Restarted plavix today. Plan to resume aspirin tomorrow - Previous provider d/w Dr Oliveros #HTN: Actually low BP this AM - Holding amlodipine and beta sonia #Neuropathy: Chronic RLE VTE ppx: SCDs Code: full Dispo: Remain inpatient Subjective: Lap maria del rosario yesterday afternoon. Procedure went well. She is in quite a bit of pain today. Abdomen distended, not passing flatus yet. No fevers. Objective: Vital Signs Temp Pulse Resp BP Pulse Ox 36.6 C 45 L 16 84/45 L 95 05/22/18 07:21 05/22/18 07:21 05/22/18 07:21 05/22/18 07:21 05/22/18 07:21 Laboratory Results 05/22/18 04:52 05/22/18 04:52 05/21/18 05/22/18 05/23/18 05:59 05:59 05:59 Intake Total 3588 1240 1314 Output Total 450 Balance 3588 790 1314 PT 12.8 SEC (12.0-15.0) 05/20/18 14:20 INR 1.00 (0.83-1.16) 05/20/18 14:20 - Physical Exam Constitutional: appears nourished, uncomfortable Eyes: PERRL, anicteric sclera Ears, Nose, Mouth, Throat: moist mucous membranes, hearing normal, ears appear normal, no oral mucosal ulcers Cardiovascular: regular rate and rhythym, no murmur, rub, or gallop Respiratory: no respiratory distress, no rales or rhonchi, clear to auscultation Gastrointestinal: normoactive bowel sounds, tenderness, distension, other ( incision sites c/d/i) Genitourinary: no bladder fullness, no bladder tenderness, no renal bruits Skin: no rashes or abrasions, no fluctuance, no induration Musculoskeletal: full muscle strength, no muscle tenderness, normal joint ROM Neurologic: AAOx3 Psychiatric: interacting appropriately ICD10 Worksheet Patient Problems: Problems Problem Status Onset Choledocholithiasis with obstruction Acute Pancreatitis Acute Chest pain Acute Chest pressure Acute Coronary artery disease Acute Diaphoresis Acute Status post insertion of drug-eluting stent into left anterior descending (LAD) artery Acute
[2018-05-22] MEDS: NS 1,000 ML IV SCH ×2 (09:49→21:21)
[2018-05-22] MEDS: LORazepam 2 MG/ML INJ IVP PRN ×2 (09:51→21:17)
[2018-05-22] MEDS: CLOPIDOGREL BISULFATE 75 MG TAB PO SCH (09:51)
[2018-05-22] MEDS ORDERED: ACETAMINOPHEN 500 MG TAB PO SCH (14:00)
[2018-05-22] MEDS ORDERED: ACETAMINOPHEN 325 MG TAB PO PRN (16:24)
[2018-05-22] MEDS: HYDROCODONE/APAP 5/325 TAB PO PRN (18:36)
[2018-05-22] MEDS: PROMETHAZINE HCL 25 MG/ML INJ IVP PRN (18:43)
[2018-05-23] MEDS: HYDROmorphONE/DILAUDID 1 MG/ML INJ IVP PRN ×5 (01:55→20:17)
[2018-05-23] MEDS: LORazepam 2 MG/ML INJ IVP PRN ×3 (04:04→22:21)
[2018-05-23] MEDS: HYDROCODONE/APAP 5/325 TAB PO PRN ×4 (04:15→22:21)
[2018-05-23] MEDS: LEVOTHYROXINE 50 MCG TAB PO SCH (05:49)
[2018-05-23] MEDS: NS 1,000 ML IV SCH ×2 (05:54→18:02)
--- NOTE | 2018-05-23 07:33 | SOAPPROG ---
SOFIE Progress Note Assessment/Plan: Assessment: 62 yo with CAD and heart stent 12/2017 admitted for gallstone pancreatitis/ choledocolithiasis LFTs stable today - but not improved I am concerned there could be a retained stone as I was unable to intraoperative cholagiogram I have ordered MRCP and discussed with Dr. Balderas Holding Plavix until after MRCP in the event ERCP is needed S: Dizzy today - still with some abdominal pain O: Lying in bed - asleep but awoke easilhy CTAB Regular rate Abdomen soft and minimal tenderness. Still distended but improved from yesterday Incisions cdi Plan: 05/21/18 07:14 05/21/18 10:33 05/23/18 07:29 Objective: Vital Signs Temp Pulse Resp BP Pulse Ox 36.3 C 55 L 16 134/70 H 98 05/23/18 04:29 05/23/18 04:29 05/23/18 04:29 05/23/18 04:29 05/23/18 04:29 Laboratory Results 05/23/18 04:42 05/23/18 04:42 05/22/18 05/23/18 05/24/18 05:59 05:59 06:59 Intake Total 1240 2829 Output Total 450 1100 Balance 790 1729 PT 12.8 SEC (12.0-15.0) 05/20/18 14:20 INR 1.00 (0.83-1.16) 05/20/18 14:20 ICD10 Worksheet Patient Problems: Problems Problem Status Onset Choledocholithiasis with obstruction Acute Pancreatitis Acute Chest pain Acute Chest pressure Acute Coronary artery disease Acute Diaphoresis Acute Status post insertion of drug-eluting stent into left anterior descending (LAD) artery Acute
--- NOTE | 2018-05-23 09:36 | SOAPPROG ---
SOFIE Progress Note Assessment/Plan: Assessment:Plan: see full consult to follow 62 y/o female with gallstone panc, abnml IOC and continued LFT's suggestive of CBD stone recent drug eluting stent on plavix so will order MRCP and see if she will need ERCP discussed with Dr. Richards 05/23/18 09:34 05/23/18 09:36 Objective: Vital Signs Temp Pulse Resp BP Pulse Ox 36.4 C 55 L 15 105/57 L 95 05/23/18 08:00 05/23/18 08:00 05/23/18 08:00 05/23/18 08:00 05/23/18 08:00 Laboratory Results 05/23/18 04:42 05/23/18 04:42 05/22/18 05/23/18 05/24/18 05:59 05:59 06:59 Intake Total 1240 2829 Output Total 450 1100 Balance 790 1729 PT 12.8 SEC (12.0-15.0) 05/20/18 14:20 INR 1.00 (0.83-1.16) 05/20/18 14:20 Laboratory Tests 05/20/18 05/21/18 05/21/18 14:20 04:40 04:46 Total Bilirubin 6.5 H 1.9 H AST 198 H 90 H ALT 335 H 179 H Alkaline Phosphatase 386 H 244 H Lipase > 66546 H 1967 H 05/22/18 05/23/18 04:52 04:42 Total Bilirubin 1.3 1.3 AST 118 H 100 H ALT 176 H 156 H Alkaline Phosphatase 227 H 222 H Lipase ICD10 Worksheet Patient Problems: Problems Problem Status Onset Choledocholithiasis with obstruction Acute Pancreatitis Acute Chest pain Acute Chest pressure Acute Coronary artery disease Acute Diaphoresis Acute Status post insertion of drug-eluting stent into left anterior descending (LAD) artery Acute
--- NOTE | 2018-05-23 09:51 | HOSPPROG ---
Hospitalist Progress Note Assessment/Plan: 62 yo F with PMH of CAD s/p stent to LAD in January 2018 as well as biliary colic and cholelithiasis presenting with jaundice and presumed choledocholithiasis and acute pancreatitis #Choledocholithiasis: LFTs plateaud - Surgery and GI following - MRCP ordered, will need ERCP if retained stone #Gallstone pancreatitis: Lipase better - s/p lap maria del rosario 05/21 - IVF, anti-emetics, pain control #CAD: LAD stent 11/2016 complicated by spontaneous dissection and repeat stent . - Restarted plavix, not on statin - Previous provider d/w Dr Oliveros #HTN: Has had low BP while here - Holding amlodipine and beta sonia #Neuropathy: Chronic RLE VTE ppx: SCDs Code: full Dispo: Remain inpatient Subjective: Still with abdominal pain but controlled with meds. Having hiccups. No nausea/vomiting. Had BM yesterady, passing flatus this AM. No chest pain. Objective: Vital Signs Temp Pulse Resp BP Pulse Ox 36.4 C 55 L 15 105/57 L 95 05/23/18 08:00 05/23/18 08:00 05/23/18 08:00 05/23/18 08:00 05/23/18 08:00 Laboratory Results 05/23/18 04:42 05/23/18 04:42 05/22/18 05/23/18 05/24/18 05:59 05:59 06:59 Intake Total 1240 2829 Output Total 450 1100 Balance 790 1729 PT 12.8 SEC (12.0-15.0) 05/20/18 14:20 INR 1.00 (0.83-1.16) 05/20/18 14:20 - Physical Exam Constitutional: appears nourished, uncomfortable Eyes: PERRL, anicteric sclera Ears, Nose, Mouth, Throat: moist mucous membranes Cardiovascular: regular rate and rhythym, no murmur, rub, or gallop Respiratory: no respiratory distress, no rales or rhonchi, clear to auscultation Gastrointestinal: normoactive bowel sounds, tenderness, other (incision sites c/ d/i) Genitourinary: no bladder fullness, no bladder tenderness, no renal bruits Skin: no rashes or abrasions, no fluctuance, no induration Musculoskeletal: full muscle strength, no muscle tenderness, normal joint ROM Neurologic: AAOx3, sensation intact bilaterally Psychiatric: interacting appropriately, not anxious, not encephalopathic, thought process linear ICD10 Worksheet Patient Problems: Problems Problem Status Onset Choledocholithiasis with obstruction Acute Pancreatitis Acute Chest pain Acute Chest pressure Acute Coronary artery disease Acute Diaphoresis Acute Status post insertion of drug-eluting stent into left anterior descending (LAD) artery Acute
[2018-05-23] MEDS: CLOPIDOGREL BISULFATE 75 MG TAB PO SCH (10:00)
[2018-05-23] MEDS: ONDANSETRON 4 MG/2 ML VIAL IVP PRN ×2 (10:16→17:01)
[2018-05-23] MEDS ORDERED: GADOBUTROL 10 ML VIAL IVP ONE (11:25)
[2018-05-23] MEDS ORDERED: MAGNESIUM HYDROXIDE 30 ML UDCUP PO PRN (11:42)
[2018-05-23] MEDS ORDERED: POLYETHYLENE GLYCOL 3350 17 GM PKT PO PRN (11:42)
[2018-05-23] MEDS ORDERED: SENNOSIDES/DOCUSATE SODIUM TAB PO PRN (11:42)
[2018-05-23] MEDS: CETIRIZINE 10 MG TAB PO SCH (13:40)
[2018-05-23] MEDS: oxyCODONE IR 5 MG TAB PO PRN (17:02)
[2018-05-23] MEDS: PROMETHAZINE HCL 25 MG/ML INJ IVP PRN (18:00)
--- NOTE | 2018-05-23 19:29 | GCON ---
[f rep st] CONSULTATION DATE OF CONSULTATION: 05/23/2018 REASON FOR CONSULTATION: Abnormal liver enzymes, possible choledocholithiasis, abnormal imaging. HISTORY OF PRESENT ILLNESS: I have been asked by Dr. Richards to see the patient in consultation for chief complaint of abnormal imaging and elevated liver enzymes. The patient is a pleasant 62-year-old female who is status post ST- elevated NM back in 01/2018 where she had drug-eluting stents placed. She was admitted on 05/20 secondary to abdominal pain and jaundice. She ended up having gallstone pancreatitis and underwent laparoscopic cholecystectomy, and had abnormal intraoperative cholangiogram, which did not reach the small bowel. Her liver enzymes did initially drop prior to the laparoscopic cholecystectomy , but have since increased, although bilirubin still stayed at 1.3. She does have abdominal discomfort, which she thinks may be similar to what she had prior to her surgery, but it is also complicated by pain at the surgical sites. Because of the continued abdominal symptoms and abnormal liver enzymes, I was called to help evaluate for possible retained common bile duct stone. She is on Plavix and aspirin which will complicate any type of procedure. PAST MEDICAL HISTORY: Coronary artery disease status post drug-eluting stent in 01/2018, hyperlipidemia, hypothyroidism, cholelithiasis. PAST SURGICAL HISTORY: Coronary stents, status post cholecystectomy. MEDICATIONS: At home include levothyroxine, Bystolic, aspirin, diclofenac cream , p.r.n. nitroglycerin, p.r.n. valacyclovir, herbal supplements. In hospital, her medications include Tylenol p.r.n., hydrocodone p.r.n., Norvasc 2.5 mg daily, zyrtec 10 mg daily, Plavix 75 mg daily, diclofenac cream 4 g four times daily p.r.n., Dilaudid p.r.n., Synthroid 50 mcg a day, Ativan p.r.n., milk of magnesia p.r.n., Bystolic 10.5 mg at bedtime, Zofran p.r.n., oxycodone p.r.n., MiraLAX p.r.n., Senokot 1 tab twice daily p.r.n. constipation , valacyclovir 100 mg p.o. three times daily p.r.n. ALLERGIES: She has a reaction to gabapentin. She is not really sure exactly what it is. She does not tolerate Brilinta. SOCIAL HISTORY: She does not smoke. She drinks alcohol infrequently socially. 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 FAMILY HISTORY: CAD, dad and sister with NM REVIEW OF SYSTEMS: A complete review of systems was performed and negative other than in the HPI. PHYSICAL EXAM: GENERAL: Well developed, well nourished, in mild abdominal discomfort while I am talking to her. VITAL SIGNS: Blood pressure 103/61, pulse 50, respirations 12, 95% on 2 L nasal cannula, temperature 36.7. EYES: Icteric, YESENIA, EOMI. MOUTH: No lesions. Moist membranes. NECK: Supple. Full range of motion. No JVD. BACK: No spine tenderness. No CVA tenderness. LUNGS: Clear. CARDIAC: S1, S2. Regular rate and rhythm. ABDOMEN: Bowel sounds are normal in pitch. Soft with right upper quadrant tenderness. No rebound. Mild guarding. No hepatosplenomegaly. EXTREMITIES: No cyanosis, clubbing, edema. NEUROLOGIC: Cranial nerves intact, nonfocal. SKIN: No stigmata of advanced liver disease. LABORATORY DATA: From today, sodium 140, potassium 3.7, chloride 111, bicarb 23 , BUN 9, creatinine 0.7, calcium 8.0, total bilirubin 1.3, AST 100, ALT 156, alkaline phosphatase 222. On 05/22, AST 118, ALT 176, alkaline phosphatase 227. On 05/21, AST 90, ALT 179, alkaline phosphatase 244, bilirubin 1.9. On , bilirubin 6.5, AST 198, ALT 335, alkaline phosphatase 386. From today, WBC 4.61, hemoglobin 10.9, hematocrit 35.1, platelet count 194. From 05/20, protime 12.8, INR 1.0, PTT 26.0. IMAGIN. Fluoroscopy performed 05/21 shows nonvisualization of the small bowel. Contrast retrogradely fills the gallbladder. There is no contrast within the common bile duct or the small bowel. Minimal extraluminal contrast is present in the right upper quadrant. 2. Abdominal ultrasound performed 05/20/2018, cholelithiasis, multiple mobile subcentimeter shadowing calculi, borderline gallbladder wall thickening 3 mm, mildly dilated common bile duct 7 mm. Two hyperechoic lesions in the liver probably represent hemangioma. ASSESSMENT: 1. Continued elevated liver enzymes. 2. Continued upper quadrant pain. 3. Abnormal imaging. 4. Possible choledocholithiasis. 5. History of recent myocardial infarction, status post drug-eluting stents, on both Plavix and aspirin. 6. Hypothyroidism. RECOMMENDATIONS: 1. MRCP for evaluation of choledocholithiasis. 2. If there is no evidence of choledocholithiasis or other abnormality requiring ERCP, then we will follow clinically. 3. ERCP for treatment of choledocholithiasis if noted on the MRCP. 4. ERCP will be high-risk procedure given the patient's antiplatelet medication. Given the drug-eluting stents have been placed only in the last 4 months, I would not want her off antiplatelet medications. She understands there will be a higher risk of bleeding from the sphincterotomy, but I described to her that heart attacks are much worse than GI bleeds. 5. Further recommendations to follow results of above and clinical course. Thank you for allowing me to participate in this patient's healthcare. Do not hesitate to call me if you have any questions. /[id number]/MODL MTDD
[2018-05-24] MEDS: LORazepam 2 MG/ML INJ IVP PRN ×3 (00:25→20:50)
[2018-05-24] MEDS: HYDROmorphONE/DILAUDID 1 MG/ML INJ IVP PRN ×5 (00:26→20:52)
[2018-05-24] MEDS: LEVOTHYROXINE 50 MCG TAB PO SCH (05:44)
--- NOTE | 2018-05-24 09:23 | SOAPPROG ---
SOFIE Progress Note Assessment/Plan: Assessment: 62 yo with CAD and heart stent 12/2017 admitted for gallstone pancreatitis/ choledocolithiasis LFTs-waiting on labs today to determine need for ERCP - appreciate Dr. Balderas MRCP limited but no obvious biliary obstruction pain control advance diet if labs are better today and no ERCP S: feeling a little better today, querying next steps (ERCP vs home) O: Lying in bed - asleep but awoke easily CTAB HR reg Regular rate Abdomen soft and minimal tenderness. Minimally distended. Incisions cdi Plan: 05/21/18 07:14 05/21/18 10:33 05/23/18 07:29 05/24/18 09:19 05/24/18 09:26 05/24/18 09:55 05/24/18 09:57 Objective: Vital Signs Temp Pulse Resp BP Pulse Ox 36.6 C 57 L 15 92/54 L 97 05/24/18 08:22 05/24/18 08:22 05/24/18 08:22 05/24/18 08:22 05/24/18 08:22 Laboratory Results 05/23/18 04:42 05/23/18 04:42 05/23/18 05/24/18 05/25/18 04:59 05:59 05:59 Intake Total Output Total Balance PT 12.8 SEC (12.0-15.0) 05/20/18 14:20 INR 1.00 (0.83-1.16) 05/20/18 14:20 ICD10 Worksheet Patient Problems: Problems Problem Status Onset Choledocholithiasis with obstruction Acute Pancreatitis Acute Chest pain Acute Chest pressure Acute Coronary artery disease Acute Diaphoresis Acute Status post insertion of drug-eluting stent into left anterior descending (LAD) artery Acute
[2018-05-24] MEDS: CLOPIDOGREL BISULFATE 75 MG TAB PO SCH (10:13)
[2018-05-24] MEDS: CETIRIZINE 10 MG TAB PO SCH (10:13)
--- NOTE | 2018-05-24 10:26 | HOSPPROG ---
Hospitalist Progress Note Assessment/Plan: 62 yo F with PMH of CAD s/p stent to LAD in January 2018 as well as biliary colic and cholelithiasis presenting with jaundice and presumed choledocholithiasis and acute pancreatitis #Choledocholithiasis - MRCP with nl size ducts and no stone but not great study; LFTs only slightly better but no as much as expected - HIDA scan in AM - If HIDA normal, consider EUS. If abnormal, ERCP - No e/o cholangitis, hold on abx - Surgery and GI following #Gallstone pancreatitis - s/p lap maria del rosario 05/21 - IVF, anti-emetics, pain control #CAD: LAD stent 11/2016 complicated by spontaneous dissection and repeat stent . - Restarted plavix, not on statin - Previous provider d/w Dr Oliveros #HTN: Has had low BP while here - Holding amlodipine and beta sonia #Neuropathy: Chronic RLE VTE ppx: SCDs Code: full Dispo: Remain inpatient Subjective: Had a better morning but feeling much more tired this afternoon. Pain overall improved. No n/v. Nose is running quite a bit. Objective: Vital Signs Temp Pulse Resp BP Pulse Ox 36.6 C 57 L 15 92/54 L 97 05/24/18 08:22 05/24/18 08:22 05/24/18 08:22 05/24/18 08:22 05/24/18 08:22 05/23/18 05/24/18 05/25/18 04:59 05:59 05:59 Intake Total Output Total Balance PT 12.8 SEC (12.0-15.0) 05/20/18 14:20 INR 1.00 (0.83-1.16) 05/20/18 14:20 - Physical Exam Constitutional: no apparent distress, other (appears tired) Eyes: PERRL, anicteric sclera Ears, Nose, Mouth, Throat: moist mucous membranes Cardiovascular: regular rate and rhythym, no murmur, rub, or gallop Respiratory: no respiratory distress, no rales or rhonchi, clear to auscultation Gastrointestinal: soft, non-tender abdomen, other (incision sites c/d/i), No distension Genitourinary: no bladder fullness, no bladder tenderness, no renal bruits Skin: no rashes or abrasions, no fluctuance, no induration Musculoskeletal: full muscle strength, no muscle tenderness, normal joint ROM Neurologic: AAOx3 Psychiatric: interacting appropriately ICD10 Worksheet Patient Problems: Problems Problem Status Onset Choledocholithiasis with obstruction Acute Pancreatitis Acute Chest pain Acute Chest pressure Acute Coronary artery disease Acute Diaphoresis Acute Status post insertion of drug-eluting stent into left anterior descending (LAD) artery Acute
[2018-05-24] MEDS: NS 1,000 ML IV SCH ×2 (10:52→23:44)
[2018-05-24] MEDS ORDERED: diphenhydrAMINE 25 MG CAP PO PRN ×2 (12:41→15:12)
--- NOTE | 2018-05-24 14:49 | SOAPPROG ---
SOFIE Progress Note Assessment/Plan: Assessment:Plan: see full consult to follow 62 y/o female with gallstone panc, abnml IOC and continued LFT's suggestive of CBD stone recent drug eluting stent on plavix so will order MRCP and see if she will need ERCP discussed with Dr. Richards 05/24/18 14:46 1) LFT's - trending down but slowly, MRCP without stone and nml size ducts, pain still present no f/c/s. HIDA then may need ERCP or EUS 2) pain - from surgery biliary system, will see if needs ERCP 3) cardiac - do not stop Plavix given drug eluting stents in January discussed with Dr Richards Subjective: cc- gallstone panc s/p lap maria del rosario pt feeling less pain today, sitting in chair did not remember speaking to me yesterday no f/c/s Objective: Vital Signs Temp Pulse Resp BP Pulse Ox 36.5 C 52 L 15 102/56 L 95 05/24/18 11:30 05/24/18 11:30 05/24/18 11:30 05/24/18 11:30 05/24/18 11:30 Laboratory Results 05/24/18 10:10 05/24/18 10:10 05/23/18 05/24/18 05/25/18 04:59 05:59 05:59 Intake Total Output Total Balance PT 12.8 SEC (12.0-15.0) 05/20/18 14:20 INR 1.00 (0.83-1.16) 05/20/18 14:20 A+Ox3 CTA S1S2 +BS, soft ruq tenderness +guarding no rebound Laboratory Tests 05/22/18 05/23/18 05/24/18 04:52 04:42 10:10 Total Bilirubin 1.3 1.3 1.1 Conjugated Bilirubin 0.8 H AST 118 H 100 H 67 H ALT 176 H 156 H 126 H Alkaline Phosphatase 227 H 222 H 198 H ICD10 Worksheet Patient Problems: Problems Problem Status Onset Choledocholithiasis with obstruction Acute Pancreatitis Acute Chest pain Acute Chest pressure Acute Coronary artery disease Acute Diaphoresis Acute Status post insertion of drug-eluting stent into left anterior descending (LAD) artery Acute
[2018-05-24] MEDS: PROMETHAZINE HCL 25 MG/ML INJ IVP PRN ×2 (16:25→23:45)
--- NOTE | 2018-05-24 16:32 | ASMTCMCOM ---
CM Note CM Note Notes: Met with patient today who reports she may benefit from [facility] RN to assess her status and wound. Referral to [facility]. Dc plan unclear at this time. CM to follow for needs. Plan: Dc to home with [facility]. Date Signed: 05/24/2018 04:31 PM Electronically Signed By:Hortensia Darling RN
[2018-05-24] MEDS: traMADol 50 MG TAB PO PRN (18:51)
[2018-05-24] MEDS: oxyCODONE IR 5 MG TAB PO PRN (23:44)
--- NOTE | 2018-05-25 02:17 | GOP ---
[f rep st] OPERATIVE REPORT DATE OF OPERATION: 05/21/2018 SURGEON: Ronel Richards MD ANESTHESIA: General. PREOPERATIVE DIAGNOSIS: 1. Gallstone pancreatitis. 2. Choledocholithiasis. POSTOPERATIVE DIAGNOSIS: 1. Gallstone pancreatitis. 2. Choledocholithiasis. PROCEDURE PERFORMED: Laparoscopic cholecystectomy with attempted intraoperative cholangiogram. FINDINGS: Inflamed cystic duct. SPECIMENS: Gallbladder. ESTIMATED BLOOD LOSS: 50 cc. INDICATIONS: The patient is a 62-year-old woman, who has coronary artery disease and stent placement at the end of 2018. She knew that she had gallstones and that they were symptomatic; however, she w as trying to make it at least 6 months past her cardiac stenting to decrease her cardiac risk. [facility], she presented with choledocholithiasis and gallstone pancreatitis. DESCRIPTION OF PROCEDURE: The patient was brought into the operating room, placed supine on the tabl e, and general anesthesia was administered. Her abdomen was prepped and draped in the usual sterile fashion. I infiltrated all sites with 0.5% Marcaine prior to making incisions. I made an incision a t her umbilicus, I elevated it, I inserted the Veress needle. It passed the hanging drop test. Her abdomen insufflated easily to a pressure of 15 mmHg. I placed a 5 mm trocar with a camera at this si te. Under direct vision, I placed a 10 mm subxiphoid trocar and two 5 mm trocars along the right cos austen margin. The left lateral segment of her liver was large and this had to be retracted in order to lift the gallbladder cephalad and laterally, and expose the triangle of Calot. We performed careful dissection at the triangle, as it was inflamed. I identified the cystic artery. I singly clipped i t towards the gallbladder, doubly clipped it distally, and transected it. I then carefully identifie d the cystic duct so that it was the only structure directly entering the gallbladder. I placed a cl ip toward the gallbladder and then partially divided the cystic duct. I spent a lot of time trying t o get the cholangiogram catheter to thread distally and had a very difficult time with this. The cys tic duct, although I could see the lumen, appeared to be inflamed. We ultimately aborted the cholang iogram. I doubly clipped the cystic duct distally and then placed an Endoloop, and I completed the t ransection of the cystic duct. I removed the gallbladder from the gallbladder fossa with electrocaut attila, placed an EndoCatch bag, and removed it via the 10 mm trocar. Hemostasis achieved on the liver bed with electrocautery. Gaby 3 g was placed on the liver bed. Ports were removed under direct vision and the abdomen was allowed to desufflate. Suction irrigation had been performed. The fascia at the 10 mm trocar site was closed with 0 Vicryl. Skin closed with 4-0 Monocryl. Dermabond applied. She was awakened in the operating room, extubated, transferred to PACU in stable condition. /[id number]/MODL
[2018-05-25] MEDS: LEVOTHYROXINE 50 MCG TAB PO SCH (05:56)
[2018-05-25] MEDS ORDERED: POTASSIUM CL 20 MEQ/15 ML UDCUP PO ONE ×3 (08:21→13:15)
--- NOTE | 2018-05-25 12:37 | HOSPPROG ---
Hospitalist Progress Note Assessment/Plan: 62 yo F with PMH of CAD s/p stent to LAD in January 2018 as well as biliary colic and cholelithiasis presenting with jaundice and presumed choledocholithiasis and acute pancreatitis #Choledocholithiasis - MRCP with nl size ducts and no stone but not great study - HIDA scan today normal - LFTs improving and pain essentially resolved - Will hold on EUS/ERCP at this time - Ok to eat/advance diet - Trial PO pain meds/anti-emetics as able - Surgery and GI following - Recheck LFTs in AM #Gallstone pancreatitis - s/p lap maria del rosario 05/21 #CAD: LAD stent 11/2016 complicated by spontaneous dissection and repeat stent . - Restarted plavix, not on statin - Previous provider d/w Dr Oliveros #HTN: Has had low BP while here - Holding amlodipine and beta sonia #Neuropathy: Chronic RLE VTE ppx: SCDs Code: full Dispo: Remain inpatient, possibly discharge tomorrow Subjective: Overall doing much better today. Minimal pain. Still has some very mild 'achiness' on the ribs on the right side. Wanting to eat and go home. Objective: Vital Signs Temp Pulse Resp BP Pulse Ox 36.4 C 65 16 142/73 H 98 05/25/18 12:00 05/25/18 12:00 05/25/18 12:00 05/25/18 12:00 05/25/18 12:00 Laboratory Results 05/25/18 04:30 05/25/18 04:30 05/24/18 05/25/18 05/26/18 05:59 05:59 05:59 Intake Total 2184 Output Total 1400 600 Balance 784 -600 PT 12.8 SEC (12.0-15.0) 05/20/18 14:20 INR 1.00 (0.83-1.16) 05/20/18 14:20 - Physical Exam Constitutional: no apparent distress, appears nourished, not in pain Eyes: PERRL, anicteric sclera, EOMI Ears, Nose, Mouth, Throat: moist mucous membranes, hearing normal, ears appear normal, no oral mucosal ulcers Cardiovascular: regular rate and rhythym, no murmur, rub, or gallop Respiratory: no respiratory distress, no rales or rhonchi, clear to auscultation Gastrointestinal: normoactive bowel sounds, other (incision sites c/d/i, no tenderness, no rebound) Genitourinary: no bladder fullness, no bladder tenderness, no renal bruits Skin: no rashes or abrasions, no fluctuance, no induration Musculoskeletal: full muscle strength, no muscle tenderness, normal joint ROM Neurologic: AAOx3, sensation intact bilaterally Psychiatric: interacting appropriately, not anxious, not encephalopathic, thought process linear ICD10 Worksheet Patient Problems: Problems Problem Status Onset Choledocholithiasis with obstruction Acute Hyperbilirubinemia Acute Pancreatitis Acute Transaminitis Acute Chest pain Acute Chest pressure Acute Coronary artery disease Acute Diaphoresis Acute Status post insertion of drug-eluting stent into left anterior descending (LAD) artery Acute
--- NOTE | 2018-05-25 13:02 | SOAPPROG ---
SOFIE Progress Note Assessment/Plan: Assessment:Plan: see full consult to follow 62 y/o female with gallstone panc, abnml IOC and continued LFT's suggestive of CBD stone recent drug eluting stent on plavix so will order MRCP and see if she will need ERCP discussed with Dr. Richards 05/24/18 14:46 1) LFT's - trending down but slowly, MRCP without stone and nml size ducts, pain still present no f/c/s. HIDA then may need ERCP or EUS 2) pain - from surgery biliary system, will see if needs ERCP 3) cardiac - do not stop Plavix given drug eluting stents in January discussed with Dr Richards 05/25/18 12:59 1) LFT's - decreasing slowly, normal MRCP and HIDA scan - maybe passed stone, maybe edema that is resolving 2) RUQ pain - less today, I think from surgery sites 3) cardiac - continue plavix 4) diet - adat 5) dispo - maybe home, as per surgery if she has recurrence of sx's with elevated LFT's then she would need ERCp Subjective: CC - gallstone pancreatitis s/p lap maria del rosario, abnl LFT's she is feeling better today, less pain no n/v, no f/c/s Objective: Vital Signs Temp Pulse Resp BP Pulse Ox 36.4 C 65 16 142/73 H 98 05/25/18 12:00 05/25/18 12:00 05/25/18 12:00 05/25/18 12:00 05/25/18 12:00 Laboratory Results 05/25/18 04:30 05/25/18 04:30 05/24/18 05/25/18 05/26/18 05:59 05:59 05:59 Intake Total 2184 Output Total 1400 600 Balance 784 -600 PT 12.8 SEC (12.0-15.0) 05/20/18 14:20 INR 1.00 (0.83-1.16) 05/20/18 14:20 A+O CTA S1S2 +BS sot RUQ tenderness over surgical sites ICD10 Worksheet Patient Problems: Problems Problem Status Onset Choledocholithiasis with obstruction Acute Hyperbilirubinemia Acute Pancreatitis Acute Transaminitis Acute Chest pain Acute Chest pressure Acute Coronary artery disease Acute Diaphoresis Acute Status post insertion of drug-eluting stent into left anterior descending (LAD) artery Acute
[2018-05-25] MEDS: CLOPIDOGREL BISULFATE 75 MG TAB PO SCH (13:06)
[2018-05-25] MEDS: CETIRIZINE 10 MG TAB PO SCH (13:07)
[2018-05-25] MEDS: FLUTICASONE NASAL 120 SPRAYS/16 GM MDI EACHNARE SCH (13:08)
[2018-05-25] MEDS ORDERED: POTASSIUM CL 20 MEQ TAB PO ONE (13:45)
--- NOTE | 2018-05-25 15:36 | ASMTCMCOM ---
CM Note CM Note Notes: Met with patient today with MD during rounds. Patient is showing some improvement, may be able to d/c on Friday. Attempted to visit patient this afternoon to confirm [facility] RN, patient resting. Will follow-up when patient is available. Plan: [facility] RN? Date Signed: 05/25/2018 03:36 PM Electronically Signed By:Nadege Smith RN
--- NOTE | 2018-05-25 15:39 | SOAPPROG ---
SOAP Progress Note Assessment/Plan: Assessment/Plan: 62yo F POD#4 s/p lap maria del rosario for gallstone pancreatitis/ choledocolithiasis. IOC unable to visualize CBD MRCP limited but no obvious biliary obstruction HIDA today - no evidence of bile leak Labs continue to improve Tolerating regular diet Passing flatus Dispo: Possibly home tomorrow if continues to improve, pain controlled and tolerating regular diet. S: pain much improved today. tolerating regular diet without nausea, vomiting or distention. Passing gas. O: laying in bed, comfortable, NAD No increased WOB +BS, soft, nondistended, minimally tender to palpation. Incisions CDI 05/25/18 15:40 Objective: Vital Signs Temp Pulse Resp BP Pulse Ox 36.4 C 65 16 142/73 H 98 05/25/18 12:00 05/25/18 12:00 05/25/18 12:00 05/25/18 12:00 05/25/18 12:00 Laboratory Results 05/25/18 04:30 05/25/18 04:30 05/24/18 05/25/18 05/26/18 05:59 05:59 05:59 Intake Total 2184 Output Total 1400 600 Balance 784 -600 PT 12.8 SEC (12.0-15.0) 05/20/18 14:20 INR 1.00 (0.83-1.16) 05/20/18 14:20 ICD10 Worksheet Patient Problems: Problems Problem Status Onset Choledocholithiasis with obstruction Acute Hyperbilirubinemia Acute Pancreatitis Acute Transaminitis Acute Chest pain Acute Chest pressure Acute Coronary artery disease Acute Diaphoresis Acute Status post insertion of drug-eluting stent into left anterior descending (LAD) artery Acute
[2018-05-25] MEDS: traMADol 50 MG TAB PO PRN (17:15)
[2018-05-25] MEDS: LORazepam 2 MG/ML INJ IVP PRN (20:48)
[2018-05-25] MEDS: oxyCODONE IR 5 MG TAB PO PRN (20:49)
[2018-05-26] MEDS: LEVOTHYROXINE 50 MCG TAB PO SCH (05:16)
--- NOTE | 2018-05-26 09:04 | SOAPPROG ---
SOAP Progress Note Assessment/Plan: Assessment/Plan: 62yo F POD#5 s/p lap maria del rosario for gallstone pancreatitis/ choledocolithiasis. IOC unable to visualize CBD MRCP limited but no obvious biliary obstruction HIDA - no evidence of bile leak Labs continue to improve Tolerating regular diet - will try premedicating with some zofran Passing flatus Dispo: seen with Dr. Richards S: a bit of nausea last night with dinner. hungry this am. pain at surgical incision. O: laying in bed, comfortable, NAD No increased WOB +BS, soft, nondistended, minimally tender to palpation. Incisions CDI Objective: Vital Signs Temp Pulse Resp BP Pulse Ox 36.7 C 61 20 126/72 H 93 05/26/18 08:00 05/26/18 08:00 05/26/18 08:00 05/26/18 08:00 05/26/18 08:00 Laboratory Results 05/26/18 04:30 05/26/18 04:30 05/25/18 05/26/18 05/27/18 05:59 05:59 05:59 Intake Total 2184 1420 Output Total 1400 600 Balance 784 820 PT 12.8 SEC (12.0-15.0) 05/20/18 14:20 INR 1.00 (0.83-1.16) 05/20/18 14:20 ICD10 Worksheet Patient Problems: Problems Problem Status Onset Choledocholithiasis with obstruction Acute Hyperbilirubinemia Acute Pancreatitis Acute Transaminitis Acute Chest pain Acute Chest pressure Acute Coronary artery disease Acute Diaphoresis Acute Status post insertion of drug-eluting stent into left anterior descending (LAD) artery Acute
[2018-05-26] MEDS: ONDANSETRON DISINTEGRATING 4 MG TAB PO PRN ×2 (09:30→13:34)
[2018-05-26] MEDS: CETIRIZINE 10 MG TAB PO SCH (09:30)
[2018-05-26] MEDS: CLOPIDOGREL BISULFATE 75 MG TAB PO SCH (09:30)
[2018-05-26] MEDS: traMADol 50 MG TAB PO PRN (09:38)
[2018-05-26] MEDS: FLUTICASONE NASAL 120 SPRAYS/16 GM MDI EACHNARE SCH (09:38)
[2018-05-26] MEDS: oxyCODONE IR 5 MG TAB PO PRN (11:23)
[2018-05-26 15:05] VITALS: BP 121/59
--- NOTE | 2018-05-26 15:49 | ASMTCMCOM ---
CM Note CM Note Notes: Patient seen in am rounds. 62 year old female s/p choley with pancreatitis. May be discharged later today if feeling well. [facility] Plan: Dc to home with [facility] Date Signed: 05/26/2018 03:48 PM Electronically Signed By:Hortensia Darling RN
--- NOTE | 2018-05-26 16:39 | PDDCSUM ---
Discharge Summary Discharge Summary: Date of Admission: 05/20/2018 Date of Discharge: 05/26/2018 Consultants: surgery (Dr Richards), GI (Dr Balderas) Studies: abdominal US, abdominal MRI, HIDA scan Procedures: laparoscopic cholecystectomy Discharge Diagnoses: 1. Gallstone pancreatitis 2. Choledocholithiasis 3. Obstructive LFTs 4. CAD (LAD stent 11/2016 complicated by spontaneous dissection and repeat stent 01/2018) on DAPT 5. Hypertension 6. Chronic right foot drop with neuropathy Brief Hospital Course: 62 yo F with PMH of CAD s/p stent to LAD in January 2018 presented with biliary colic and jaundice. She was found to have choledocholithiasis and acute pancreatitis. She was empirically started on IV antibiotics. Surgery was consulted and she underwent an uncomplicated laparoscopic cholecystectomy. An intra-operative cholangiogram to assess for retained stone was attempted but unsuccessful. Her LFTs were slow to improve and there was concern for possible retained stone. She had an MRCP which was equivocal due to technical limitations. A HIDA scan was then performed which showed no biliary leak or obstruction. Her LFTs continued to down-trend and her symptoms improved dramatically so we did not pursue ERCP. She was tolerating PO and had a bowel movement prior to discharge. She did have some residual RUQ pain that is felt to be related to her surgical sites. Her plavix was held for 2 doses in the cornelia -operative period however this was resumed prior to discharge. Medications: Please refer to EMR for complete list. I wrote prescriptions for oxycodone 5mg q4h PRN #12 with 0 refills, zofran ODT, and phenergan. Her amlodipine was stopped. Follow Up Plan: 1. Clinic appointment with Dr Richards in 10 days 2. Routine follow up with Dr Oliveros in cardiology clinic. She was recently taken off her statin (Lipitor) due to severe myalgias. Physical Exam: Vitals reviewed, normotensive and afebrile. Alert and oriented, rrr, lungs clear, abdomen nondistended and soft with clean incision sites, no edema.
--- NOTE | 2018-05-26 16:46 | ASMTLACE ---
LACE Length of stay for Answers: 4-6 days current admission Acuity / Level of Answers: Yes Care: Did the patient have an inpatient admission? Comorbidities - select Answers: Coronary Artery Disease all that apply # of Emergency department Answers: 1-2 visits in the last 6 months Score: 10 Date Signed: 05/26/2018 04:44 PM Electronically Signed By:Hortensia Darling RN
--- NOTE | 2018-05-26 16:56 | PDIAF ---
- Diagnosis Code Status: Full Code - Medication Management Discharge Medications: electronically signed and located in the Home Medication List. PICC Care - Routine: N/A - Orders Services needed: Home Care, Registered Nurse Home Care Face to Face: I certify that this patient was under my care and that I had the required [id number] encounter meeting the encounter requirements on the discharge day. My findings support the fact that the patient is homebound as defined in Home Care Face to Face Continued: CMS Chapter 7 Medicare Benefits Manual 30.1.1 , The condition of the patient is such that there exists a normal inability to leave home and consequently, leaving home would require a considerable and taxing effort. Diet Recommendation: low fat Diet Texture: Regular Texture Diet Additional Instructions: I sent prescriptions for the following to your pharmacy: 1. Oxycodone 2. Zofran 3. Phenergan Discontinue taking your amlodipine. Please continue to take your aspirin and plavix. Follow up with Dr Richards as discussed. Also I recommend seeing Dr Oliveros in 1 month or so. You may shower. No heavy lifting, pushing or pulling more than 15 lbs for 2 weeks from surgery Do not immerse wounds in hot tub, tub bath or swimming pool for 1 week after surgery Call with fevers, jaundice, worsening pain, concerns of infection or other questions Diet as tolerated - Follow Up Care Current Providers and Referrals: Ronel Richards MD [Medical Doctor] - follow up in 10 days NONE *PRIMARY CARE P,. [Primary Care Provider] -
== END 2018-05-26 17:23 | disposition home health service (06) | DRG 418 ==
LOC: F1N 17:54
PROVIDERS: ADMIT Internal Medicine; ATTEND Internal Medicine
PROC: 0FT44ZZ Resection of Gallbladder, Percutaneous Endoscopic Approach (ICD-10-PCS; principal; 2018-05-21 16:00)
DX: K85.10 Biliary acute pancreatitis without necrosis or infection (principal); K80.71 Calculus of gallbladder and bile duct without cholecystitis with obstruction; I25.10 Atherosclerotic heart disease of native coronary artery without angina pectoris; E78.5 Hyperlipidemia, unspecified; E03.9 Hypothyroidism, unspecified; I10 Essential (primary) hypertension; G62.9 Polyneuropathy, unspecified; I25.2 Old myocardial infarction; Z95.5 Presence of coronary angioplasty implant and graft; Z79.01 Long term (current) use of anticoagulants; Z79.82 Long term (current) use of aspirin
CPT/HCPCS: 84484-ER; 96374; 97116-GP; 97162-GP; A9537; A9585; J1100; J1170; J1335; J1885; J2060; J2405; J2550; J2704; J2710; J3010; Q9961